=== PATIENT | female | born 1980 | race Caucasian/White ===

== ENCOUNTER → 2024-05-14 | Outpatient (CLI) | payer BC, SELFPAY ==
[2024-05-14 17:27] LABS: Absolute Lymphocyte Count 3.02 X10^3/uL (0.83-4.51); Absolute Neutrophil Count 4.4 X10^3/uL (2.0-7.7); Basophil# 0.06 X10^3/uL; Basophil% 0.7 % (0-1); Eosinophils% 2.4 % (0-5); Hematocrit 33.8 % (37-47); Hemoglobin 10.3 g/dL (12.0-15.0); Lymphocyte # 3.02 X10^3/ul (0.83-4.51); Lymphocyte % 36.1 % (19-41); Mean Corp Hgb Conc 30.5 g/dL (32-36); Mean Corpuscular Hgb 24.3 pg (27.0-32.0); Mean Corpuscular Volume 79.9 fL (81-99); Mean Platelet Vol. 10.5 fl (6.2-12.0); Monocyte# 0.64 X10^3/uL; Monocyte% 7.7 % (0-10); NRBC Flagged by Analyzer 0 % (0-5); Neutrophil # 4.42 X10^3/uL (2.7-7.7); Neutrophil % 52.9 % (47-70); Platelet Count 456 K/mm3 (150-450); RBC Distribution Width CV 16.5 % (11.6-14.6); RBC Distribution Width SD 47.2 fl (35.1-43.9); Red Blood Count 4.23 M/mm3 (4.2-5.4); White Blood Count 8.4 K/mm3 (4.4-11.0)
[2024-05-14 18:07] LABS: Vitamin B12 497 pg/mL (211-911); Vitamin D,25 Hydroxy 19.6 ng/mL
[2024-05-14 18:21] LABS: ALB/GLOB Ratio 0.8 RATIO (0.9-2.4); AST(SGOT) 12 U/L (15-37); Alanine Aminotransfer ALT/SGPT 22 U/L (13-56); Albumin, Serum 3.7 g/dL (3.2-5.0); Alkaline Phosphatase 53 U/L (45-117); Anion Gap 7 (5-15); BUN 7 mg/dL (7-18); BUN/Creat Ratio 11.7 RATIO (10-20); Calcium,Total 9.2 mg/dL (8.5-10.1); Chloride 106 mmol/L (98-107); Cholesterol 208 mg/dL (200); EST Glomerular Filtration Rate 117 mL/min (>60); Est Glom Filt Rate - Afr Amer 141 mL/min (>60); Ferritin 7 ng/mL (8-252); Globulin 4.5 g/dL (2.2-4.2); Glucose 91 mg/dL (74-106); High Density Lipoprotein 70 mg/dL; Iron 29 ug/dL (50-170); Potassium 3.7 mmol/L (3.5-5.1); Protein, Total 8.2 g/dL (6.4-8.2); Sodium Level 138 mmol/L (136-145); T4 Free Direct 1.19 ng/dL (0.76-1.46); Triglycerides 77 mg/dL; Very Low Density Lipoprotein 15 mg/dL (5-40)
== END | disposition home or self-care (01) ==
PROVIDERS: PCP Family Medicine; Referring Provider Nurse Practitioner Family; Visit Provider Nurse Practitioner Family
DX: Z00.01 Encounter for general adult medical examination with abnormal findings (principal); R53.83 Other fatigue
CPT/HCPCS: 36415; 80053; 80061; 82306; 82607; 82728; 83540; 84439; 84443; 85025

== ENCOUNTER → 2024-06-20 | Outpatient (CLI) | payer BC, SELFPAY ==
[2024-06-27 10:58] LABS: Age Gdln ACOG Testing 30-65 (.); HPV APTIMA, High Risk Negative (Negative)
[2024-06-27 14:07] LABS: HPV Reflexed? NOT INDICATED
== END | disposition home or self-care (01) ==
LOC: LABSPEC 12:51
PROVIDERS: PCP Family Medicine; Referring Provider Nurse Practitioner Family; Visit Provider Nurse Practitioner Family
DX: Z12.4 Encounter for screening for malignant neoplasm of cervix (principal)
CPT/HCPCS: 88175; G0145

== ENCOUNTER → 2024-07-03 | Outpatient (CLI) | payer BC, SELFPAY ==
--- NOTE | 2024-07-03 13:04 | US_ITS ---
INDICATION: RLQ pain EXAMINATION: Ultrasound US Pelvis Non-OB Complete TECHNIQUE: Transabdominal and transvaginal pelvic ultrasound was performed. Grayscale, spectral waveform, and color flow Doppler evaluation of the adnexa. COMPARISON: No relevant prior comparison study available FINDINGS: UTERUS: Anteverted. The uterus measures 17.8 x 17.6 x 5.4 cm. Multiple masses are seen in the uterus consistent with uterine fibroids. There is a large mass on the right side of the uterus measuring about 6.6 cm. There is another pedunculated mass near the fundus of the uterus measuring about 6.6 cm. Another large mass is seen in the body of the uterus close to the endometrial canal measuring about about 11.8 x 11.3 x 8.4 cm. The endometrial stripe is not visualized. RIGHT OVARY: 3.2 x 2.5 x 2.1 cm. Non-enlarged, normal echogenicity. There is normal arterial inflow and venous outflow present in the right ovary. LEFT OVARY: 4.6 x 2.9 x 2.4 cm. There is a 2.5 cm cyst in the left ovary. There is normal arterial inflow and venous outflow present in the left ovary. FREE FLUID: None. US/Pelvic (Non ) IMPRESSION: 1. Enlarged uterus with multiple masses consistent with uterine fibroids. 2. Large mass in the body of the uterus may be extending or arising from the endometrial canal. 3. Small left ovarian cyst. Electronically Signed: Ankush Hernandez MD at 16:02 EDT ,
== END | disposition home or self-care (01) ==
LOC: US 12:54
PROVIDERS: PCP Nurse Practitioner Family; Referring Provider Nurse Practitioner Family; Visit Provider Nurse Practitioner Family
DX: R10.31 Right lower quadrant pain (principal)
CPT/HCPCS: 76856

== ENCOUNTER → 2024-10-03 | Outpatient (CLI) | payer BC, SELFPAY ==
--- NOTE | 2024-10-03 | IMM_PTH ---
PATIENT: BONY LIVINGSTON LOC: [facility] U#:[id number] AGE/SX: 43/F ROOM: RE10/03/[address]: Dr. Monica Davila DO : 1980 BED: DIS: 10/03/2024 SPEC #: [id number] RECD: 10/07/24 11:23 STATUS: JAYNE REQ #: [id number] ANA: 10/03/24 00:[address]: Monica Davila DEPT: IMMUNOHISTOCHEMISTRY RECD BY: Guilherme Pablo ENTERED: 10/07/24 11:24 SP TYPE: IMMUNO OTHR DR: Paola Hope, CORPORATE DIRECTOR-C Tissues: Endometrium, NOS Procedures: p16 (initial) KI-67 (add) PHYSICIAN & INSTITUTION [place] [id number] SPECIMEN INFORMATION: Tissue Source: Endometrial biopsy Clinical Info: Menorrhagia Specimen Number: [id number] CPT code: 45951,83937 METHODOLOGY: Deparaffinized sections of prefer/formalin-fixed tissue or PAP/DQ stained slides are incubated with monoclonal/polyclonal antibodies/oligonucleotide probes. Localization is made via biotin free immunoperoxidase method. Appropriate controls are performed and reacted as expected. Results on target cell population are indicated in the following table: RESULTS: ANTIBODY / CLONE RESULT P16 (E6H4) positive, non-specific glandular staining Ki-67 (30-9) positive, in endometrial stromal fragments These tests were developed and their performance characteristics determined by [facility]. They may not have been cleared or approved by the U.S. Food and Drug Administration. The FDA has determined that such clearance or approval is not necessary. The above immunohistochemical/dualISH markers are ordered and reviewed by the Pathologist. INTERPRETATION: Endometrial biopsy: Benign endocervical tissue and rare scant endometrial tissue. CARLOS MANUEL. 10/07/2024
--- NOTE | 2024-10-03 15:30 | EMB_PTH ---
PATIENT: BONY LIVINGSTON LOC: [facility] U#:[id number] AGE/SX: 43/F ROOM: RE10/03/[address]: Dr. Monica Davila DO : 1980 BED: DIS: 10/03/2024 SPEC #: [id number] RECD: 10/03/24 17:08 STATUS: JAYNE BHARGAV #: [id number] ANA: 10/03/24 15:[address]: Monica Davila DEPT: SURGICAL PATHOLOGY RECD BY: Christi Grewal ENTERED: 10/06/24 08:21 SP TYPE: ENDOM BX/C [place] DR: Paola Hope, GEOLOGICAL TECHNICIAN-C Tissues: Endometrium, NOS Procedures: Surgery Specimen Level IV HEADER OPERATION: Endometrial biopsy PRE-OP DIAGNOSIS: Menorrhagia TISSUE SUBMITTED: Endometrial lining MICROSCOPIC DIAGNOSIS Endometrial biopsy: Blood admixed with portions of endocervix showing mild chronic inflammation and focal squamous metaplasia. Rare scant portions of broken-down endometrium, benign. See comment. 10/07/2024 COMMENT There is minimal endometrial tissue for evaluation therefore, should endometrial pathology continue to be suspected, a curetting specimen may provide more material for evaluation if clinically indicated. Immunohistochemistry ([id number]) supports the above diagnosis. Case has been reviewed in consultation with Dr. Duran who concurs with the above diagnosis. IDC:CHICO MICROSCOPIC DESCRIPTION Slides are reviewed. GROSS DESCRIPTION Received in fixative is one container labeled with the patient's name and designated Endometrial biopsy. The specimen consists of multiple irregular fragments of hemorrhagic mucoid tissue that in aggregate measure 2.5 x 1 x 0.2 cm. The specimen is totally submitted in one cassette. 10/06/2024 TC:3 CPT:69092
== END | disposition home or self-care (01) ==
LOC: LABSPEC 16:28
PROVIDERS: PCP Nurse Practitioner Family; Referring Provider Obstetrics & Gynecology; Visit Provider Obstetrics & Gynecology
DX: N92.0 Excessive and frequent menstruation with regular cycle (principal)
CPT/HCPCS: 88305; 88341; 88342

== ENCOUNTER → 2024-11-10 | Outpatient (CLI) | payer BC, SELFPAY ==
[2024-11-10 16:07] LABS: Hematocrit 37.8 % (37-47); Hemoglobin 12.4 g/dL (12.0-15.0); Mean Corp Hgb Conc 32.8 g/dL (32-36); Mean Corpuscular Hgb 29.5 pg (27.0-32.0); Mean Platelet Vol. 11.1 fl (6.2-12.0); Platelet Count 387 K/mm3 (150-450); RBC Distribution Width CV 16.4 % (11.6-14.6); RBC Distribution Width SD 54.4 fl (35.1-43.9); White Blood Count 9.7 K/mm3 (4.4-11.0)
== END | disposition home or self-care (01) ==
LOC: BWCLAB 14:31
PROVIDERS: PCP Nurse Practitioner Family; Visit Provider Obstetrics & Gynecology
DX: Z01.818 Encounter for other preprocedural examination (principal)
CPT/HCPCS: 36415; 83735; 85027; 86850; 86900; 86901

== ENCOUNTER 2024-11-11 09:37 | Inpatient (IN) | payer BC, SELFPAY ==
[2024-11-11] VITALS (19 sets, daily range): BP systolic 81–112; BP diastolic 49–72; PULSE 60–95; RESP 12–18; TEMP 36.2–37.3; O2SAT 96–100; BMI 28.8
[2024-11-11] MEDS: Celecoxib 200 MG Capsule 400 MG PO (06:10)
[2024-11-11] MEDS: Phenazopyridine 95 MG Tablet 190 MG PO (06:10)
[2024-11-11] MEDS: Acetaminophen 500 MG Tablet 1000 MG PO ×4 (06:10→23:13)
[2024-11-11] MEDS: Scopolamine 1mg/72hr Patch 1 PATCH TD (06:11)
[2024-11-11] MEDS: Gabapentin 600 MG Tablet PO (06:11)
[2024-11-11] MEDS: Lactated Ringers 1,000 ML 40 ML IV (06:21)
[2024-11-11] MEDS: Magnesium 1 GM over 15 mins IV (06:22)
[2024-11-11 06:29] LABS: Internal QC Validated? YES +Cl - CLEAR BKGD; Pregnancy, Urine Negative Negative
[2024-11-11 06:53] LABS: Bedside Glucose 100 mg/dL (74-106)
--- NOTE | 2024-11-11 07:13 | PRE.ANES_ITS ---
ASA Classification* ASA Classification ASA Classification: 2 Assessment & Plan Anesthesia* Anesthesia Assessment Anesthesia Assessment: Discussed sedation and/or anesthesia options, risks, benefits, and alternatives with patient/parents/legal guardian/POA. Questions invited. The patient/parents/legal guardian/POA seems to understand and agrees to proceed with anesthesia plan. Reviewed the physical assessment, medical history, allergy history and patient home medications list prior to surgery/procedure/anesthetic and documented any changes. Performed airway and anesthesia risk assessments. Anesthesia Type Anesthesia Type: General History Source History Obtained from:: Patient and Chart Anesthesia Focused Assessment* Temperature: 99.2 F Pulse Rate: 87 Blood Pressure: 112/72 Respiratory Rate: 18 Pulse Ox: 97 Oxygen Delivery Method: Room Air Airway Assessment Mouth opens: >3 cm Mallampati Score: II Teeth Condition: Intact Neck Range of motion (ROM): Full ROM Focused Labs Anesthesia Preop lab: CBC WBC 9.7 K/mm3 (4.4-11.0) 11/10/24 14:32 11/10/24 RBC 4.20 M/mm3 (4.2-5.4) 11/10/24 14:32 11/10/24 Hgb 12.4 g/dL (12.0-15.0) 11/10/24 14:32 11/10/24 Hct 37.8 % (37-47) 11/10/24 14:32 11/10/24 Plt Count 387 K/mm3 (150-450) 11/10/24 14:32 11/10/24 CHEMISTRY Potassium 3.7 mmol/L (3.5-5.1) 05/14/24 16:40 05/14/24 Sodium 138 mmol/L (136-145) 05/14/24 16:40 05/14/24 Magnesium 2.0 mg/dL (1.5-2.2) 11/10/24 14:32 11/10/24 BUN 7 mg/dL (7-18) 05/14/24 16:40 05/14/24 Creatinine 0.60 mg/dL (0.55-1.02) 05/14/24 16:40 05/14/24 Glucose 91 mg/dL (74-106) 05/14/24 16:40 05/14/24 POC Glucose 100 mg/dL (74-106) 11/11/24 05:57 11/11/24 TSH 1.540 uIU/mL (0.358-3.740) 05/14/24 16:40 05/04 09/26 COAG Urine Test Negative Negative 11/11/24 06:08 11/11/24 Pre-Assessment Diagnosis/Proposed Procedure Planned Operative Procedure(s): TOTAL ABDOMINAL HYSTERECTOMY, BILATERAL SALPINGECTOMY Anesthesia History Anesthesia History - shingle trimmer: Anesthesia History - shingle trimmer Hx Hospitalization No 10/28/24 08:20 Any Problems With Anesthesia No 10/28/24 08:20 Cholinesterase deficiency No 10/28/24 08:20 You/Your Family Experience No 10/28/24 08:20 fever (hyperthermia) with Relationship Recent Exposure to Contagious No 11/11/24 06:00 Disease Does patient have nerve No 10/28/24 08:20 stimulator Patient instructed to have device shut off --Does patient have Pacemaker No 11/11/24 06:02 or ICD? When Was Last Pacemaker Check QUESTION #4 FULL TEXT: You/Your Family Experience fever (hyperthermia) with Anesthesia Last Oral Intake Last Oral intake: Last Oral Intake NPO since 04:50 11/11/24 06:02 Meds taken in AM with sips of No 11/11/24 06:02 water? Meds patient instructed to take am of surgery PONV PONV - shingle trimmer: PONV - shingle trimmer Female Yes 10/28/24 08:20 HX of Motion Sickness No 10/28/24 08:20 HX of N/V After Surgery No 10/28/24 08:20 Non-Smoker Yes 10/28/24 08:20 Duration of Surgery greater Yes 10/28/24 08:20 than 60 minutes Number of Risk Factors 3 10/28/24 08:20 PONV Score Moderate Risk 10/28/24 08:20 Height & Weight Height & Weight: Anesthesia: Height & Weight Height 5 ft 4 in 11/11/24 06:02 Weight: 76.204 kg 11/11/24 06:02 Body Mass Index (BMI) 28.8 11/11/24 06:02 Respiratory Assessment Respiratory Assessment - shingle trimmer: Respiratory Tract Infection Hx - shingle trimmer Hx Respiratory Tract Infection No 10/28/24 08:20 STOP Sleep Apnea STOP Sleep Apnea - shingle trimmer: STOP Sleep Apnea - shingle trimmer Hx Hypertension No 10/28/24 08:20 Hx Sleep Apnea No 10/28/24 08:20 CPAP BIPAP Do you snore loudly (louder No 10/28/24 08:20 than talking or can be heard Do you often feel tired/ No 10/28/24 08:20 fatigued/ sleepy during daytime? Has anyone observed you stop No 10/28/24 08:20 breathing during sleep? STOP Results Negative 10/28/24 08:20 QUESTION #5 FULL TEXT : Do you snore loudly (louder than talking or can be heard through closed doors)? 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 Specify any problems Hx of Preganancy in last 3 No 10/28/24 08:20 Months Nurse Filling Out Transfusion [email or web address] 10/28/24 08:20 & Questions: Date: 10/28/24 10/28/24 08:20 Time: 08:10/28/24 08:20 Patient unable to answer at this time (ie. confused, unrespo /Reproduction History /Reproductive History - shingle trimmer: /Reproductive Hx- shingle trimmer Hx Now No 10/28/24 08:20 Gestational Age (in weeks): EDC: Hx Hx Para Hx Section SAB No 10/31/24 13:21 Active Medications Active Medications: Current Medications Generic Name Dose Route Start Last Admin Trade Name Freq PRN Reason Stop Dose Admin Acetaminophen 1,000 mg 11/11/24 07:30 11/11/24 06:10 Acetaminophen 500 Mg Tablet PO 11/11/24 07:31 1,000 mg PREOP ONE Administration Celecoxib 400 mg 11/11/24 07:30 11/11/24 06:10 Celecoxib 200 Mg Capsule PO 11/11/24 07:31 400 mg X1 ONE Administration Gabapentin 600 mg 11/11/24 07:30 11/11/24 06:11 Gabapentin 600 Mg Tablet PO 11/11/24 07:31 600 mg PREOP ONE Administration Lactated Ringer's 1,000 mls @ 40 mls/hr 11/11/24 07:30 11/11/24 06:21 IV 40 mls/hr .Q25H ERICA Administration Lactated Ringer's 1,000 mls @ 70 mls/hr 11/11/24 07:30 IV .[id number] ERICA Cefazolin Sodium 2 gm/ N/A 20 mls @ 400 mls/hr 11/11/24 07:30 IV 11/11/24 07:32 PREOP ONE Insulin Human Lispro 0 unit 11/11/24 07:30 Insulin Lispro 100 Unit/Ml Insuln.Pen SC 11/11/24 18:00 Q4H PRN PRN BG >/= 180, SEE PROTOCOL Protocol Ondansetron HCl 4 mg 11/11/24 07:30 Ondansetron 4 Mg/2 Ml Vial IV 11/11/24 07:31 X1 ONE Phenazopyridine HCl 190 mg 11/11/24 07:30 11/11/24 06:10 Phenazopyridine 95 Mg Tablet PO 11/11/24 07:31 190 mg X1 ONE Administration Scopolamine HBr 1 patch 11/11/24 07:30 11/11/24 06:11 Scopolamine 1mg/72hr Patch TD 11/11/24 07:31 1 patch X1 ONE Administration [facility] Medical History Wears glasses Alcohol use Scoliosis Anemia Home Medications ?Medication ?Instructions ?Recorded ?Last Taken ?Type ferrous sulfate 325 mg (65 mg 325 mg PO QDAY DAILY 11/09/24 History iron) tablet (iron) multivitamin 1 tab PO QDAY DAILY 08/18/24 11/09/24 History cholecalciferol (vitamin D3) 25 25 mcg PO DAILY DAILY 10/28/24 11/09/24 History mcg (1,000 unit) capsule milk thistle seed extract 150 1 cap PO DAILY DAILY 10/28/24 History mg-artichoke leaf extract 300 mg capsule (Artichoke Premium Extract) Allergy/AdvReac Type Severity Reaction Status Date / Time No Known Allergies Allergy Verified 11/11/24 05:58 Surgical History History of wisdom tooth extraction History of delivery Social History Smoking Status: Never smoker Review of Systems (Anesthesia) ROS Narrative System reviewed and no additional complaints, except as documented.
--- NOTE | 2024-11-11 07:19 | PCM.HP.BLA ---
History and Physical Date of Admission: 11/11/24 Intake Vital Signs 10/03/2514:15 10/31/2512:19 10/31/2512:21 Height 5 ft 4 in 5 ft 4 in 5 ft 4 in Weight: 167 lb BMI 28.6 BP 106/72 Intake Visit Reasons: [facility] Hub Borer Required: No Is patient in pain?: No Allergies No Known Allergies Allergy (Verified 10/31/24 13:19) Medications ?Medication ?Instructions ?Recorded ?Confirmed ?Type ferrous sulfate 325 mg (65 mg 325 mg PO QDAY DAILY 08/18/24 10/31/24 History iron) tablet (iron) multivitamin 1 tab PO QDAY DAILY 08/18/24 10/31/24 History cholecalciferol (vitamin D3) 25 25 mcg PO DAILY DAILY 10/28/24 10/31/24 History mcg (1,000 unit) capsule milk thistle seed extract 150 1 cap PO DAILY DAILY 10/28/24 10/31/24 History mg-artichoke leaf extract 300 mg capsule (Artichoke Premium Extract) Post menopausal: No Patient : No : No PFSH Medical History Wears glasses Alcohol use Scoliosis Anemia Surgical History History of wisdom tooth extraction History of delivery Social History Smoking Status: Never smoker [facility] Details: BONY LIVINGSTON is a 43 year old (2 sections) who presents for preoperative examination. She is scheduled for a total abdominal hysterectomy. EMB was benign. Ultrasound on 07/03/24 showed the following: INDICATION: RLQ pain EXAMINATION: Ultrasound US Pelvis Non-OB Complete TECHNIQUE: Transabdominal and transvaginal pelvic ultrasound was performed. Grayscale, spectral waveform, and color flow Doppler evaluation of the adnexa. COMPARISON: No relevant prior comparison study available FINDINGS: UTERUS: Anteverted. The uterus measures 17.8 x 17.6 x 5.4 cm. Multiple masses are seen in the uterus consistent with uterine fibroids. There is a large mass on the right side of the uterus measuring about 6.6 cm. There is another pedunculated mass near the fundus of the uterus measuring about 6.6 cm. Another large mass is seen in the body of the uterus close to the endometrial canal measuring about about 11.8 x 11.3 x 8.4 cm. The endometrial stripe is not visualized. RIGHT OVARY: 3.2 x 2.5 x 2.1 cm. Non-enlarged, normal echogenicity. There is normal arterial inflow and venous outflow present in the right ovary. LEFT OVARY: 4.6 x 2.9 x 2.4 cm. There is a 2.5 cm cyst in the left ovary. There is normal arterial inflow and venous outflow present in the left ovary. FREE FLUID: None. US/Pelvic (Non ) IMPRESSION: 1. Enlarged uterus with multiple masses consistent with uterine fibroids. 2. Large mass in the body of the uterus may be extending or arising from the endometrial canal. 3. Small left ovarian cyst. sound on 07/03/24 showed the following She states that her mom also had a fibroid uterus. She denies family history of uterine cancer. ROS Const ROS Unobtainable: All systems reviewed & are unremarkable except as noted in H Resp Resp: Reports system reviewed and no additional complaints, except as documented; Denies cough GI GI: Reports as per HPI Psych Psych: Reports system reviewed and no additional complaints, except as documented Exam Const General: cooperative, healthy appearing, comfortable and no acute distress Resp Effort & Inspection: normal respiratory effort Skin General: no rashes or lesions noted Psych Appearance: grossly normal Speech and Movement: speech and movement normal Coding Level of Care Code Off vis,est,level 4 Diagnoses Menorrhagia N92.0 Fibroid uterus D25.9 Anemia D64.9 Assessment and Plan Assessment and Plan (1) Menorrhagia: Status: Acute (2) Fibroid uterus: Status: Acute (3) Anemia: Status: Acute Comment: ON FE Plan After discussing the patient's diagnosis and treatment plan options, patient wishes to proceed with surgical management. I have discussed with the patient the risks, benefits, and alternatives of the procedure which include but are not limited to risks of anesthesia, bleeding, infection, possible damage to bowel, bladder, or surrounding vasculature which could lead to additional surgery to evaluate any complications. Patient agrees to procedure and wishes to proceed. ACOG/uptodate references given for additional information regarding procedure. plan to check hg the weekend prior to surgery plan for total abdominal hysterectomy, bs
[2024-11-11] MEDS: Cefazolin 2 GM in Syringe IV (07:30)
--- NOTE | 2024-11-11 07:30 | UT_PTH ---
PATIENT: BONY LIVINGSTON LOC: [facility] U#:[id number] AGE/SX: 43/F ROOM: MS311 RE11/11/[address]: Dr. Monica Davila DO : 1980 BED: 1 DIS: 11/12/2024 SPEC #: [id number] RECD: 11/11/24 09:48 STATUS: JAYNE BHARGAV #: [id number] ANA: 11/11/24 07:[address]: Monica Davila DEPT: SURGICAL PATHOLOGY RECD BY: Guilherme Pablo ENTERED: 11/11/24 09:49 SP TYPE: UTERUS OTHR DR: Paola Hope, TELEGRAPH REPEATER TECHNICIAN-C Tissues: Uterus, NOS Procedures: Surgery Specimen Level V HEADER OPERATION: ERAS, hysterectomy, BALJINDER, bilateral salpingectomy PRE-OP DIAGNOSIS: Menorrhagia TISSUE SUBMITTED: Uterus and bilateral fallopian tubes MICROSCOPIC DIAGNOSIS UTERUS WITH BILATERAL FALLOPIAN TUBES, HYSTERECTOMY WITH BILATERAL SALPINGECTOMY: Cervix: SOFIA I, Nabothian cysts, tunnel clusterEndometrium: SecretoryMyometrium: LeiomyomataFallopian tubes: 2 completely transected fallopian tubes with paratubal cysts COMMENT German Redding M.D., 11/15/24 MICROSCOPIC DESCRIPTION Slides are reviewed. GROSS DESCRIPTION The specimen is received fresh labeled with the patient's name, accession number and uterus and bilateral fallopian tubes. It consists of a uterus with attached cervix and 2 detached undesignated fallopian tubes. The uterus weighs 2080 gm and measures 20 x 19 x 11 cm. The ectocervical mucosa is white, smooth and shiny, and the os is small and round. The uterus is opened, revealing the endocervical canal to measure 4 cm in length and to be hampton and trabecular. The endometrial canal is 17.5 cm long by 6 cm from cornu to cornu. It has a maximum thickness of 7 mm. It is hampton and velvety. The myometrium is distorted by multiple whorled white nodules which range in size from 0.4 cm to 13 x 9 x 9 cm. The nodules are located intramurally, subserosally and submucosally. The largest nodule has gelatinous, degenerated-appearing areas. The other nodules have firm rubbery whorled white surfaces. The first detached undesignated fallopian tube measures 7 x 1.3 x 1 cm. It has a fimbriated end and a purple congested-appearing serosal surface. The second fallopian tube also has a fimbriated end and it measures 7 x 1.3 x 0.8 cm. It also has a purple, congested-appearing serosal surface, with no lesions identified. RS 13. 11/12/24 Cassette summary: A1-anterior cervix A2-posterior cervix A3-anterior endometrium A4-posterior endometrium A1-H11-qfqsupu nodule A57-zgafzi-skpnfek nodule R54-agxjt fallopian tube L38-ncrfzf fallopian tube CPT: 25208, TC:1
--- NOTE | 2024-11-11 09:31 | PCM.OPRPT ---
Problems Associated Problem List Diagnoses (1) Menorrhagia: (2) Fibroid uterus: (3) Anemia: Multi Select Codes Urinary/Genital Urinary/Genital CPT Codes: 74752 [facility] Operative Report (Standard) Operative Information Date of Procedure: 11/11/24 Pre-Operative Diagnosis: enlarged fibroid uterus, menorrhagia Post-Operative Diagnosis: enlarged fibroid uterus, menorrhagia Surgery/Procedure Performed: total abdominal hysterectomy, bilateral salpingectomy certified ethical hacker: Yes Collet Gluer: Keara Alvarez Tasks completed by development assistant: Opening, Closing, Hemostasis: Clamp, Hemostasis: Tie, Hemostasis: Electrocautery and Retracting Additional dental hygiene administrative assistant?: No Type of Anesthesia: General RN Documented Start/Stop Times: Operation Date: 11/11/24 07:30 Case Time Into Pre-Op 11/11/24 05:35 Out of Pre-Op 11/11/24 07:25 Anesthesia Start 11/11/24 07:29 Into Room 11/11/24 07:29 Procedure Start 11/11/24 07:58 Procedure End 11/11/24 09:26 Procedure Start Time: 07:58 Procedure Stop Time: 09:26 Select all DRAINS/GRAFTS/IMPLANTS that apply: None Estimated Blood Loss: 100cc Specimen collected: Yes Description of specimen(s) removed: uterus and tubes Description of surgery: The patient was taken to the operating room and placed under general anesthesia in the dorsal supine position. She was prepped and draped in the normal sterile fashion. Trivedi catheter was placed in the bladder SCDs were on and preoperative antibiotics were given. A Pfannenstiel skin incision was made with the scalpel and carried through the underlying layer of the fascia with the scalpel, fascia was nicked in the midline, incision extended laterally. Rectus bellies were dissected off superiorly and inferiorly sharply and bluntly and peritoneum entered digitally, incision stretched laterally and the retractor was placed after the bowel was packed away. The uterus was identified and noted to be significantly enlarged approximately 20 cm with multiple large fibroids. The ovaries were noted to be within normal limits. The fallopian tubes were elavated bilaterally and the mesosapinx clamped cut and burned with a hand held ligasure device. The round ligaments were transected bilaterally and using the lagasure. The broad ligament was opened up and the utero-ovarian ligament vessels were double clamped cut and suture ligated with 0 Vicryl. The bladder flap was created taking down the vesicouterine peritoneum and the uterine vessels were skeletonized and clamped cut and suture ligated with 0 Monocryl bilaterally. The cardinal ligament were then clamped cut and suture ligated bilaterally with 0 Vicryll followed by progressive bites of the parametrium down to the level of the cervix. Good attention was paid to keep the bladder inferior to the clamps and dissected off of the cervix and lower uterine corpus. The clamps were then placed underneath the cervix bilaterally the uterus amputated off of the vaginal stump and the vaginal cuff was suture ligated with 0 vicryl [id number] sutures ?3. Excellent hemostasis was noted with some raw appearance which was covered with hemoblast after irrigation. Bilateral fallopian tubes were then removed excellent hemostasis was noted all instruments removed from the abdomen and the peritoneum was closed with 3-0 Monocryl fascia closed with 0 stratafix. The subcutaneous tissue reapproximated with 3-0 vicryl and the skin closed with 4-0 Monocryl. Patient was awoken and taken recovery in stable condition. Surgical Findings: uterus weighing 2134 grams (4 lbs 7 oz) Complications Complications: No Admit VTE Documentation VTE Present on Admission: No VTE Mechan Device Prophylaxis: SCD's VTE Pharm Prophylaxis ordered?: Yes
[2024-11-11] MEDS: Ondansetron 4 MG/2 ML Vial IV (09:50)
[2024-11-11] MEDS: Lactated Ringers @ 70 MLS/HR 70 ML IV (09:55)
[2024-11-11] MEDS: Ketorolac 30 MG/ML Syringe IV ×3 (12:02→23:13)
[2024-11-11] MEDS: 0.9% Saline Lock 10 ML Syringe IV ×2 (12:02→17:43)
--- NOTE | 2024-11-11 17:16 | PCM.POST.ANE ---
Anesthesia: Postop Eval I Current Vital Signs Temperature: 97.9 F Pulse Rate: 80 Blood Pressure: 99/63 Respiratory Rate: 16 Pulse Ox: 98 Oxygen Delivery Method: Nasal Cannula Oxygen Flow Rate (L/min): 4 Assessment Airway patent: Yes Spontaneous unlabored respirations: Yes Mental status: Awake nausea: No Vomiting: No Anesthesia Complication: No Fluid Hydration Crystalloid volume administer (ml): 1,000 (See intraop record. - may not be accurate) Total IV fluid infused: 1,000 Progress Note Anesthesia document: Postop Eval 1 completed: Yes
--- NOTE | 2024-11-11 17:18 | PCM.POSTANE2 ---
Anesthesia Postop Eval I Sum Postop Eval Completion status Anesthesia document: Postop Eval 1 completed: Yes Anesthesia Postop Eval I Summary Anesthesia Postop Eval I Summary: Anesthesia Postop Eval I: Assessment Summary Airway patent Yes 11/11/24 17:18 Spontaneous unlabored Yes 11/11/24 17:18 respirations Mental status Awake 11/11/24 17:18 nausea No 11/11/24 17:18 Vomiting No 11/11/24 17:18 Anesthesia Postop Eval I: Fluid Summary Crystalloid volume administer 1,000 - See 11/11/24 17:18 (ml) intraop record. - may not be accurate Colloids volume administered ( ml) Blood Product volume administered (ml) Total IV fluid infused 1,000 11/11/24 17:18 Anesthesia Postop Eval I: Summary Notes Anesthesia Complication No 11/11/24 17:18 Anesthesia Complication Comment: Post-operative progress note Anesthesia: Postop Eval II Evaluation Mental status: Awake Pain Level: 1 nausea: No Vomiting: No Complications Anesthesia Complication: No
[2024-11-11] MEDS: Docusate Sodium 100 MG Capsule PO (23:12)
[2024-11-12 05:00] VITALS: BP 106/69; PULSE 66; RESP 15; TEMP 36.8; O2SAT 99
[2024-11-12] MEDS: Acetaminophen 500 MG Tablet 1000 MG PO ×2 (05:30→12:03)
[2024-11-12] MEDS: Ketorolac 30 MG/ML Syringe IV ×2 (05:30→12:04)
[2024-11-12 07:18] LABS: Hematocrit 33.4 % (37-47); Hemoglobin 10.8 g/dL (12.0-15.0); Mean Corp Hgb Conc 32.3 g/dL (32-36); Mean Corpuscular Hgb 29.6 pg (27.0-32.0); Mean Corpuscular Volume 91.5 fL (81-99); Mean Platelet Vol. 10.6 fl (6.2-12.0); Platelet Count 316 K/mm3 (150-450); RBC Distribution Width CV 16.8 % (11.6-14.6); RBC Distribution Width SD 56.7 fl (35.1-43.9); Red Blood Count 3.65 M/mm3 (4.2-5.4); White Blood Count 14.1 K/mm3 (4.4-11.0)
[2024-11-12 08:19] VITALS: BP 105/71; PULSE 78; RESP 14; TEMP 36.5; O2SAT 96
[2024-11-12 08:25] VITALS: PULSE 78; RESP 14; O2SAT 96
[2024-11-12] MEDS: Docusate Sodium 100 MG Capsule PO (09:57)
--- NOTE | 2024-11-12 10:25 | CASEMGMT ---
JACK DYER Assessment: Face to Face with pt for initial transition planning/care coordination assessment. JACK DYER introduced self and role at [facility], pt voices understanding and consents to assessment. Pt is A&O x4 and answers all questions appropriately at this time. Pt sitting up in bed with , father and grandmother at bedside. Pt agreeable to assessment with family present. Care providers, pharmacy, and demographics verified/updated. Admitting Dx: divine GALE Strata Score: 1 PCP:Jayy Specialists:[facility]um[facility] [employer] [facility] [facility] Insurance: [employer] Pres[employer] Benefit: yes LNOK: Gato Landis, Living Arrangements: Pt lives with and two children in a two story home with 4 steps to enter. Pt reports she is I in ADL/IADLs. Pt denies concerns at home. Transportation: Pt drives self and denies concerns with transportation. DME:Denies HHC/SNF: Denies hx of Pt states no concerns with going home at time of dc. Pt states no further concerns/needs. CM to follow. Advised pt to ask CM if any further questions/concerns/needs arise, voices understanding. Pt Goal: Home Plan: Home Bo[facility] SANTIAGO CM
[2024-11-12] MEDS: 0.9% Saline Lock 10 ML Syringe IV (12:04)
[2024-11-12 13:48] VITALS: BP 108/68; PULSE 76; RESP 16; TEMP 36.6; O2SAT 97
--- NOTE | 2024-11-12 16:21 | NURSING ---
All documentation by nursing program manager Katy Lackey reviewed by nursing home assistant administrator Monica WHIPPLE, RN.
== END 2024-11-12 14:46 | disposition home or self-care (01) | DRG 743 ==
LOC: MS3 13:24
PROVIDERS: Admitting Provider Obstetrics & Gynecology; PCP Nurse Practitioner Family; Referring Provider Obstetrics & Gynecology; Visit Provider Obstetrics & Gynecology
PROC: 0UT90ZZ Resection of Uterus, Open Approach (ICD-10-PCS; CPT 58150; principal; 2024-11-11 07:10)
DX: D25.9 Leiomyoma of uterus, unspecified (principal); D64.9 Anemia, unspecified; N92.0 Excessive and frequent menstruation with regular cycle; N88.8 Other specified noninflammatory disorders of cervix uteri; N87.0 Mild cervical dysplasia; N83.8 Other noninflammatory disorders of ovary, fallopian tube and broad ligament
CPT/HCPCS: 36415; 81025; 82962; 85027; 88307; 94668; A4216; J2405; J3475

== ENCOUNTER → 2025-05-11 | Outpatient (CLI) | payer BC, SELFPAY ==
--- NOTE | 2025-05-11 07:10 | BI_ITS ---
EXAM: SCRN MAMM (CAD)W/SANTY BILAT DATE: 05/11/2025 CLINICAL HISTORY: F, Age 44 y/o , SCREENING TECHNIQUE: Procedure Code: [id number] Modality: MG Procedure: SCRN MAMM (CAD)W/SANTY BILAT COMPARISON: None. FINDINGS: TISSUE DENSITY: The breasts are extremely dense, which lowers the sensitivity of mammography. Bilateral Breast Mammographic Findings: No significant masses, calcifications or other abnormalities are identified. BI/SCRN MAMM (CAD)W/SANTY BILAT IMPRESSION: Negative screening mammogram. OVERALL FINAL ASSESSMENT BI-RADS 1: NEGATIVE. RECOMMENDATION: Routine annual follow-up in 1 Year A letter with findings and recommendations will be mailed to the patient. Reading Location: [id number]
--- OUTSIDE RECORDS SUMMARY | 2025-05-11 07:22 | XMS RPT_ITS | CCD ---
Author Organization [facility] Care Team Providers Care Community Development Officer Name Role Phone Omar Giles Primary Care Provider Jayy COMPRESSOR OPERATOR ADJUSTER-C, Paola Primary Care Provider [phone] Jayy COMPRESSOR OPERATOR ADJUSTER-C, [place] Referring Provider [phone] Monica Davila DO Attending Provider Jabier Ogden Attending Provider Dr. Monica Davila DO Referring Provider Dr. Monica Davila DO Admit Provider [phone] Dr. Monica Davila DO Other Provider [phone] Jayy COMPRESSOR OPERATOR ADJUSTER-C, [place] Primary Care Provider [phone] Jayy COMPRESSOR OPERATOR ADJUSTER-C, [place] Referring Provider Dr. Monica Davila DO Attending Provider Dr. Monica Davila DO Referring Provider Dr. Dexter Redding MD Attending Provider Dr. Dexter Redding MD Referring Provider Lisa COMPRESSOR OPERATOR ADJUSTER-CMarta Attending Provider Kvng Hedrick Attending Provider Jayy, Paola Primary Care Unavailable Monica Davila Admitting Unavailkalyan e Monica Davila Referring Unavailabl e Monica Davila Attending Unavailabl e Jayy, Paola Attending Unavailable Jayy, Paola Primary Care Unavailable Jayy, Paola Referring Unavailable Sailors, Dexter Referring Unavailable WendyorsDexter Attending Unavailable Jayy, Paola Primary Care Unavailable Jayy, Paola Primary Care Unavailable Monica Davila Attending Unavailabl e Monica Davila Consulting Unavailabl e Margote Monica Pina Admitting Unavailabl e Vande Velde, Monica Referring Unavailabl e Jayy, Paola Primary Care Unavailable Jayy, Paola Referring Unavailable Marta Gonzalez NP Attending Unavailable Jayy, Paola Primary Care Unavailable Jayy, Paola Referring Unavailable Margote Monica Pina Attending Unavailabl e Jayy, Paola Referring Unavailable Jabier Ogden Attending Unavailable Jayy, Paola Primary Care Unavailable Jayy, Paola Referring Unavailable Jayy, Paola Primary Care Unavailable Herman Pina, Monica Attending Unavailabl e Jayy, Paola Primary Care Unavailable Herman Pina, Monica Attending Unavailabl e Jayy, Paola Referring Unavailable Jayy, Paola Primary Care Unavailable Jayy, Paola Referring Unavailable Monica Davila Attending Unavailabl e Jayy, Paola Primary Care Unavailable Jayy, Paola Referring Unavailable Kvng Hedrick Attending Unavailable Jayy, Paola Attending Unavailable Jayy, Paola Referring Unavailable Malys, Odette Primary Care Unavailable Jayy, Paola Attending Unavailable Malys, Odette Primary Care Unavailable Jayy, Paola Referring Unavailable Jayy, Paola Primary Care Unavailable Monica Davila Referring Unavailabl e Herman Pina, Monica Attending Unavailabl e Jayy, Paola Attending Unavailable Jayy, Paola Primary Care Unavailable Jayy, Paola Referring Unavailable Jayy, Paola Primary Care Unavailable Monica Davila Attending Unavailabl e Medications Current Medications Medication Drug Class(es) Dates Sig (Normalized) Sig (Original) cholecalciferol 0.025 mg oral capsule (4 sources) Vitamin D Start: 10-28-2024 take 1 capsule by mouth once daily Cholecalciferol (Vitamin D3) 25 mcg (1,000 unit) capsule Active 25 ug PO DAILY October 28, 2024 1:00am ferrous sulfate 325 mg oral tablet (4 sources) Start: 08-18-2024 take 1 tablet by mouth once daily Ferrous Sulfate (Iron) 325 mg (65 mg iron) tablet Active 325 mg PO daily August 18, 2024 1:00am Milk Thist Seed-Artichoke High Rolls (Artichoke Premium Extract) 150-300 mg capsule (4 sources) Start: 10-28-2024 Milk Thist Seed-Artichoke High Rolls (Artichoke Premium Extract) 150-300 mg capsule Active 1 NMA PO DAILY October 28, 2024 1:00am Multivitamin tablet (4 sources) Start: 08-18-2024 Multivitamin tablet Active 1 {tbl} PO daily August 18, 2024 1:00am Completed/Discontinued Medications Medication Drug Class(es) Dates Sig (Normalized) Sig (Original) azithromycin 250 mg oral tablet (4 sources) Macrolide Antimicrobial Start: 08-21-2024 End: 10-03-2024 take 2-5 tablets by mouth once daily Azithromycin 250 mg tablet Discontinued 0 PO .COMPLEX August 21, 2024 1:00am October 03, 2024 4:24pm take 500 mg today (day 1), then 250 mg for 4 days (days 2-5) PO B Kaxsewd-P-I-Zn tablet (4 sources) Start: 08-18-2024 End: 10-28-2024 B Jzrbdpm-F-G-Zn tablet Discontinued {tbl} PO August 18, 2024 1:00am October 28, 2024 9:17am benzonatate 100 mg oral capsule (4 sources) Non-narcotic Antitussive Start: 08-21-2024 End: 10-03-2024 take 2 capsules by mouth three times daily as needed for cough Benzonatate 100 mg capsule Discontinued 200 mg PO THREE TIMES A DAY as needed for cough August 21, 2024 1:00am October 03, 2024 4:24pm Kwugdgpl-Ne-Qxb-Fe- FA ORAL Tab (1 source) Start: 06-20-2007 take 1 tablet by mouth once daily Fwxdoixj-Vn-Eii-Fe -FA ORAL Tab TAKE ONE DAILY 0 06/20/2007 Active Comment on above: TAKE ONE DAILY Problems Active Problems Problem Classification Problem Date Documented Da te Episodic/Chronic Acute bronchitis (4 sources) Acute bronchitis; Translations: [Acute bronchitis, unspecified] 08-21-2024 Episodic Deficiency and other anemia (17 sources) Anemia; Translations: [Anemia, unspecified] Onset: 02-12-2009 02-12-2009 Episodic Comment on above: ON FE Genitourinary congenital anomalies (1 source) Bicornuate uterus; 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] Onset: 05-14-2009 05-14-2009 Chronic Immunizations and screening for infectious disease (4 sources) Contact with and (suspected) exposure to other viral communicable diseases; Translations: [Contact with or suspected exposure to other viral communicable disease] 08-21-2024 Episodic Menstrual disorders (17 sources) Menorrhagia; Translations: [Excessive and frequent menstruation with regular cycle] Onset: 12-10-2024 08-18-2024 Chronic Other aftercare (2 sources) Surgical follow-up; Translations: [Encounter for follow-up examination after completed treatment for conditions other than malignant neoplasm] 11-26-2024 Episodic Other and delivery including normal (1 source) Normal in primigravida; Translations: [Supervision of normal first ] Onset: 06-20-2007 06-20-2007 Other screening for suspected conditions (not mental disorders or infectious disease) (2 sources) Encounter for screening mammogram for malignant neoplasm of breast; Translations: [Encounter for screening for malignant neoplasm of cervix] Onset: 07-10-2024 Episodic Past or Other Problems Problem Classification Problem Date Documented Da te Episodic/Chronic Abdominal pain (1 source) Right lower quadrant pain; Translations: [Right lower quadrant pain] Onset: 07-22-2024 Episodic Administrative/social admission (5 sources) Patient encounter status; Translations: [Encounter for pre-employment examination] Onset: 02-03-2025 02-03-2025 Episodic Benign neoplasm of uterus (17 sources) Uterine leiomyoma; Translations: [Leiomyoma of uterus, unspecified] Onset: 10-03-2024 08-18-2024 Episodic Conditions associated with dizziness or vertigo (1 source) Dizziness and giddiness; Translations: [Dizziness and giddiness] Onset: 02-12-2009 02-12-2009 Episodic Deficiency and other anemia (1 source) Anemia, unspecified; Translations: [Anemia, unspecified] Onset: 10-03-2024 Episodic Headache; including migraine (1 source) Headache; Translations: [Headache(784.0)] Onset: 02-12-2009 02-12-2009 Episodic Neoplasms of unspecified nature or uncertain behavior (1 source) Neoplasm of uncertain behavior of skin; Translations: [Neoplasm of uncertain behavior of skin] Onset: 03-25-2009 03-25-2009 Episodic Other aftercare (1 source) Encounter for follow-up examination after completed treatment for conditions other than malignant neoplasm; Translations: [Encounter for follow-up examination after completed treatment for conditions other than malignant neoplasm] Onset: 11-26-2024 Episodic Other circulatory disease (1 source) Elevated blood-pressure reading without diagnosis of hypertension; Translations: [Elevated blood pressure reading without diagnosis of hypertension] Onset: 03-25-2009 03-25-2009 Episodic Results Test Name Value Interpretation Reference Range Facility Office Visit Reporton 2024 Office Visit Report [facility] [address] [place] [address] OFFICE VISIT Date of Service: 02/03/25 MR#: [id number] Acct: [id number] Patient: BONY LIVINGSTON Rep #: [id number] : 1980 Provider: NIGEL Medley Age/Sex: 44/F [place] [facility] Status: Signed Intake Vital Signs 12/22/24 15:18 Height 5 ft 4 in Intake Visit Reasons: PE NON DOT DRUG BAT / MENA BRUSH Chief Complaint: 6wk Postop Allergies No Known Allergies Allergy (Verified 12/22/24 15:17) Office Procedures [facility] Billing Sheet Testing Breath Alcohol in [facility]: Yes Pre-Employment Drug Screen: Yes Pre-Employment PE: Yes 02/10/25 0827 Date Kvng MANNING Cosigner Signature: Date (if applicable) CC: Normal [facility] Visit Reporton 0 02-03-2025 Urgent Care Visit Report [facility] [address], [address] [place] [address] OFFICE VISIT Date of Service: 02/03/25 MR#: [id number] Acct: [id number] Name: BONY LIVINGSTON Rep #: [id number] : 1980 Provider: NIGEL Medley Age/Sex: 44/F Location[place] [facility] Status: Signed Intake Vital Signs 12/22/24 15:18 Height 5 ft 4 in Intake Visit Reasons: PE NON DOT PHYSICAL/ MENA BRUSH Chief Complaint: 6wk Postop Allergies No Known Allergies Allergy (Verified 12/22/24 15:17) PFSH Medical History (Updated 02/03/25 @ 13:11 by Kvng MANNING, PA) Physical exam, pre-employment Wears glasses Alcohol use Scoliosis Anemia Surgical History (Updated 12/26/24 @ 16:[address] Monica Davila, DO) S/P abdominal hysterectomy History of wisdom tooth extraction History of delivery Social History Smoking Status: Never smoker HPI HPI Chief Complaint: 6wk Postop Details: BONY LIVINGSTON, is a 44 F who presents to the office today for Office Procedures Physical Exam Coding PE Coding Pre-employment PE: Yes Coding Level of Care Code Attention Falguni Diagnoses Physical exam, pre-employment Z02.1 Assessment and Plan Assessment and Plan (1) Physical exam, pre-employment: Status: Acute 02/03/25 1311 Date Kvng MANNING Cosigner Signature: Date (if applicable) CC: Normal [facility] Office Visit Reporton 12-22-2024 [facility] Office Visit Report [facility] [address], [address] [place] [address] OFFICE VISIT Date of Service: 12/22/24 MR#: [id number] Acct: [id number] Name: BONY LIVINGSTON Rep #: [id number] : 1980 Provider: Dr. Monica Metcalf DO Age/Sex: 44/F [place] [facility] [place]: Signed Intake Vital Signs 10/03/24 15:15 11/26/24 09:58 12/22/24 15:17 12/22/24 15:18 Height 5 ft 4 in 5 ft 4 in 5 ft 4 in 5 ft 4 in Weight: 163 lb 4 oz BMI 28.0 BP 109/76 Intake Visit Reasons: 6 wk BALJINDER BS Chief Complaint: 6wk Postop Postal Service Window Clerk Required: No Is patient in pain?: No Allergies No Known Allergies Allergy (Verified 12/22/24 15:17) Medications ???Medication ???Instructions ???Recorded ???Confirmed ???Type ferrous sulfate 325 mg (65 mg 325 mg PO QDAY DAILY 08/18/2412/03 History iron) tablet (iron) multivitamin 1 tab PO QDAY DAILY 08/18/2412/22 History cholecalciferol (vitamin D3) 25 25 mcg PO DAILY DAILY 10/28/24 History mcg (1,000 unit) capsule milk thistle seed extract 150 1 cap PO DAILY DAILY 10/28/2412/03 History mg-artichoke leaf extract 300 mg capsule (Artichoke Premium Extract) Post menopausal: No Patient : No : No PFSH Medical History Wears glasses Alcohol use Scoliosis Anemia Surgical History S/P abdominal hysterectomy History of wisdom tooth extraction History of delivery Social History Smoking Status: Never smoker HPI 6 wk BALJINDER BS Details: BONY LIVINGSTON is a 44 year old who presents for 6 week post op abdominal hysterectomy. she has no complaints and feeling well. ROS ENT ENT: Reports system reviewed and no additional complaints, except as documented Cardio Card: Reports system reviewed and no additional complaints, except as documented Resp Resp: Denies cough, dyspnea or dyspnea on exertion GI GI: Denies abdominal pain, bloating or change in bowel habits : Denies vaginal odor or vaginal pruritus Details: lochia is mild Musc Musc: Reports system reviewed and no additional complaints, except as documented Exam Const General: cooperative, healthy appearing and comfortable Resp Effort Inspection: normal respiratory effort GI Palpation: soft and nontender Rectal Exam: other Other: cuff is intact and suture is dissolving. no bleeding or signs of infection Extrem General: no edema Coding Level of Care Code No Charge Diagnoses Status post hysterectomy Z90.710 Assessment and Plan Assessment and Plan (1) Status post hysterectomy: Status: Acute Plan: healing without complications RTO for yearly exams and PRN 12/26/24 1606 Date Monica Blancas Signature: Date (if applicable) CC: Normal [facility] Office Visit Reporton 11-26-2024 Thermostat Maker Office Visit Report [facility] [address], [address] [place] [address] OFFICE VISIT Date of Service: 11/26/24 MR#: [id number] Acct: [id number] Name: BONY LIVINGSTON Rep #: [id number] : 1980 Provider: CLAY vilchis Age/Sex: 43/F [place] [facility] Status: Signed Intake Vital Signs 10/03/24 15:15 11/11/24 11:28 11/26/24 09:54 11/26/24 09:58 Height 5 ft 4 in 5 ft 4 in 5 ft 4 in 5 ft 4 in Weight: 164 lb BMI 28.1 BP 102/64 Intake Visit Reasons: 2 wk BALJINDER BS Chief Complaint: 2 Week BALJINDER 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 Is patient in pain?: No Allergies No Known Allergies Allergy (Verified 11/26/24 09:54) Medications ???Medication ???Instructions ???Recorded ???Confirmed ???Type ferrous sulfate 325 mg (65 mg 325 mg PO QDAY DAILY 08/18/2411/02 History iron) tablet (iron) multivitamin 1 tab PO QDAY DAILY 08/18/2411/26 History cholecalciferol (vitamin D3) 25 25 mcg PO DAILY DAILY 10/28/24 History mcg (1,000 unit) capsule milk thistle seed extract 150 1 cap PO DAILY DAILY 10/28/2411/02 History mg-artichoke leaf extract 300 mg capsule (Artichoke Premium Extract) Is last menstrual period known: No Post menopausal: No Patient : No : No Control Method: Hyst [facility] Medical History Wears glasses Alcohol use Scoliosis Anemia Surgical History S/P abdominal hysterectomy History of wisdom tooth extraction History of delivery Social History Smoking Status: Never smoker HPI 2 wk BALJINDER BS Details: BONY LIVINGSTON is a 43 year old who presents for 2 week postop BALJINDER BS for large fibroid per Dr Davila. Is doing well. No longer needing pain medication. No vaginal bleeding. Some constipation Exam Const General: cooperative and no acute distress Orientation: oriented x3 GI Inspection: incision (well healed, nonerythematous) Palpation: soft and nontender Coding Level of Care Code No Charge Diagnoses Postop check Z09 Assessment and Plan Assessment and Plan (1) Postop check: Plan Routine postop care RTO 4 weeks 11/26/24 1011 Date Marta Gonzalez COMPRESSOR OPERATOR ADJUSTER COMPRESSOR OPERATOR ADJUSTER-C Cosigner Signature: Date (if applicable) CC: Normal [facility] CBC-Complete Blood Cnt No Di ffon 11-12-2024 Erythrocyte distribution width (RBC) [Ratio] 16.8 % High 11.6-14.6 [facility] Comment on above: Performed By: #### L 100.0500 #### [facility] [address] [place], [address] Hematocrit (Bld) [Volume fraction] 33.4 % Low 37-47 [facility] Comment on above: Performed By: #### L 100.0500 #### [facility] [address] [place], [address] Hemoglobin (Bld) [Mass/Vol] 10.8 g/dL Low 12.0-15.0 [facility] Comment on above: Performed By: #### L 100.0500 #### [facility] [address] [place], [address] MCH (RBC) [Entitic mass] 29.6 pg Normal 27.0-32.0 [facility] Comment on above: Performed By: #### L 100.0500 #### [facility] [address] [place], [address] MCHC (RBC) [Mass/Vol] 32.3 g/dL Normal 32-36 [facility] Comment on above: Performed By: #### L 100.0500 #### [facility] [address] [place], [address] MCV (RBC) [Entitic vol] 91.5 fL Normal 81-99 [facility] Comment on above: Performed By: #### L 100.0500 #### [facility] [address] [place], [address] Platelet mean volume (Bld) [Entitic vol] 10.6 fL Normal 6.2-12.0 [facility] Comment on above: Performed By: #### L 100.0500 #### [facility] [address] [place], [address] Platelets (Bld) [#/Vol] 316 10*3/uL Normal 150-450 [facility] Comment on above: Performed By: #### L 100.0500 #### [facility] [address] [place], [address] RBC (Bld) [#/Vol] 3.65 10*6/uL Low 4.2-5.4 [facility] Comment on above: Performed By: #### L 100.0500 #### [facility] [address] [place], [address] RDW SD 56.7 fl High 35.1-43.9 [facility] Comment on above: Performed By: #### L 100.0500 #### [facility] [address] [place], [address] WBC (Bld) [#/Vol] 14.1 10*3/uL High 4.4-11.0 [facility] Comment on above: Performed By: #### L 100.0500 #### [facility] [address] [place], [address] Erythrocyte distribution wid th ratioOrdered By: Monica Pina on 11-12-2024 Erythrocyte distribution width (RBC) [Ratio] 16.8 % High 11.6-14.6 [facility] Erythrocyte distribution wid th standard deviationOrdered By: Monica Pina on 11-12-2024 Erythrocyte distribution width (RBC) [Entitic vol] 56.7 fL High 35.1-43.9 [facility] Erythrocyte distribution width (RBC) [Ratio] 56.7 fl High 35.1-43.9 [facility] Hematocrit Auto (Bld) [Volum e fraction]Ordered By: Monica Pina on 11-12-2024 Hematocrit (Bld) [Volume fraction] 33.4 % Low 37-47 [facility] Hemoglobin measurementOrdere d By: Monica Pina on 11-12-2024 Hemoglobin (Bld) [Mass/Vol] 10.8 g/dL Low 12.0-15.0 [facility] MCV (mean corpuscular volume ) determinationOrdered By: Monica Pina on 11-12-2024 MCV (RBC) [Entitic vol] 91.5 fL 81-99 [facility] Mean corpuscular hemoglobin (MCH) determinationOrdered By: Monica Pina on 11-12-2024 MCH (RBC) [Entitic mass] 29.6 pg 27.0-32.0 [facility] Mean corpuscular hemoglobin concentration (MCHC) determinationOrdered By: Monica Pina on 11-12-2024 MCHC (RBC) [Mass/Vol] 32.3 g/dL 32-36 [facility] Mean platelet volume determi nationOrdered By: Monica Pina on 11-12-2024 Platelet mean volume (Bld) [Entitic vol] 10.6 fL 6.2-12.0 [facility] Platelet countOrdered By: Maurice Pina on 11-12-2024 Platelets (Bld) [#/Vol] 316 10*3/uL 150-450 [facility] RBC Auto (Bld) [#/Vol]Ordere d By: Monica Pina on 11-12-2024 RBC (Bld) [#/Vol] 3.65 10*6/uL Low 4.2-5.4 [facility] White blood cell (WBC) count Ordered By: Monica Pina on 11-12-2024 WBC (Bld) [#/Vol] 14.1 10*3/uL High 4.4-11.0 [facility] Bedside Glucoseon 11-11-2024 FINGERSTICK GLU 100 mg/dL Normal 74-106 [facility] Comment on above: Result Comment: NICCI GEMENT OF PATIENT CARE PER NURSING PROTOCOL Performed By: #### L 501.080 ####[facility] [id number] [place], [address] Glucose measurement at bedsi deOrdered By: Monica Pina on 11-11-2024 Bedside Glucose (Misc Panel) 100 mg/dL 74-106 [facility] Comment on above: MANAGEMENT OF PATIEN T CARE PER NURSING PROTOCOL Glucose [Mass/Vol] 100 mg/dL 74-106 [facility] Comment on above: MANAGEMENT OF PATIEN T CARE PER NURSING PROTOCOL MR/POSTOP.ANEon 11-11-2024 MR/POSTOP.[facility] Medical Records Department [address] [place] [address] Anesthesia Postop Eval I 11/11/241715 MR#: [id number] Acct: [id number] Name: BONY LIVINGSTON Rep #: [id number] : 1980 43 From: Omkar Meyer MD PCP: SANJANA KitchenC Status:ADM IN Y Race: C Location: [place] [address] Anesthesia: Postop Eval I Current Vital Signs Temperature: 97.9 F Pulse Rate: 80 Blood Pressure: 99/63 Respiratory Rate: 16 Pulse Ox: 98 Oxygen Delivery Method: Nasal Cannula Oxygen Flow Rate (L/min): 4 Assessment Airway patent: Yes Spontaneous unlabored respirations: Yes Mental status: Awake nausea: No Vomiting: No Anesthesia Complication: No Fluid Hydration Crystalloid volume administer (ml): 1,000 (See intraop record. - may not be accurate) Total IV fluid infused: 1,000 Progress Note Anesthesia document: Postop Eval 1 completed: Yes 11/11/241717 Date Omkar Meyer MD Cosigner Signature: Date CC: Signed Normal [facility] MR/[id number] 11-11-2024 [facility] Medical Records Department [address] [place] [address] Anesthesia Postop Eval II 11/11/241717 MR#: [id number] Acct: [id number] Name: BONY LIVINGSTON Rep #: [id number] : 1980 43 From: Omkar Meyer MD PCP: CLAY Kitchen Status:ADM IN Y Race: C Location: MS3 [id number] Anesthesia Postop Eval I Sum Postop Eval Completion status Anesthesia document: Postop Eval 1 completed: Yes Anesthesia Postop Eval I Summary Anesthesia Postop Eval I Summary: Anesthesia Postop Eval I: Assessment Summary Airway patent Yes 11/11/24 17:18 Spontaneous unlabored Yes 11/11/24 17:18 respirations Mental status Awake 11/11/24 17:18 nausea No 11/11/24 17:18 Vomiting No 11/11/24 17:18 Anesthesia Postop Eval I: Fluid Summary Crystalloid volume administer 1,000 - See 11/11/24 17:18 (ml) intraop record. - may not be accurate Colloids volume administered ( ml) Blood Product volume administered (ml) Total IV fluid infused 1,000 11/11/24 17:18 Anesthesia Postop Eval I: Summary Notes Anesthesia Complication No 11/11/24 17:18 Anesthesia Complication Comment: Post-operative progress note Anesthesia: Postop Eval II Evaluation Mental status: Awake Pain Level: 1 nausea: No Vomiting: No Complications Anesthesia Complication: No 11/11/24 1718 Date Omkar Meyer MD Cosigner Signature: Date CC: Signed Normal [facility] Operative Reporton 5 Operative Report [facility] Medical Records Department [address] [place] [address] Operative Report 11/11/24 0931 MR#: [id number] Acct: [id number] Name: BONY LIVINGSTON Rep #: [id number] : 1980 43 From: Monica Davila DO PCP: CLAY Kitchen Status:ADM IN Location: [facility]- Problems Associated Problem List Diagnoses (1) Menorrhagia: (2) Fibroid uterus: (3) Anemia: Multi Select Codes Urinary/Genital Urinary/Genital CPT Codes: 16121 [facility] Operative Report (Standard) Operative Information Date of Procedure: 11/11/24 Pre-Operative Diagnosis: enlarged fibroid uterus, menorrhagia Post-Operative Diagnosis: enlarged fibroid uterus, menorrhagia Surgery/Procedure Performed: total abdominal hysterectomy, bilateral salpingectomy swift tender: Yes Collar Packer: Keara Alvarez Tasks completed by first mate: Opening, Closing, Hemostasis: Clamp, Hemostasis: Tie, Hemostasis: Electrocautery and Retracting Additional patent legal assistant?: No Type of Anesthesia: General RN Documented Start/Stop Times: Operation Date: 11/11/24 07:30 Case Time Into Pre-Op 11/11/24 05:35 Out of Pre-Op 11/11/24 07:25 Anesthesia Start 11/11/24 07:29 Into Room 11/11/24 07:29 Procedure Start 11/11/24 07:58 Procedure End 11/11/24 09:26 Procedure Start Time: 07:58 Procedure Stop Time: 09:26 Select all DRAINS/GRAFTS/IMPLAN TS that apply: None Estimated Blood Loss: 100cc Specimen collected: Yes Description of specimen(s) removed: uterus and tubes Description of surgery: The patient was taken to the operating room and placed under general anesthesia in the dorsal supine position. She was prepped and draped in the normal sterile fashion. Trivedi catheter was placed in the bladder SCDs were on and preoperative antibiotics were given. A Pfannenstiel skin incision was made with the scalpel and carried through the underlying layer of the fascia with the scalpel, fascia was nicked in the midline, incision extended laterally. Rectus bellies were dissected off superiorly and inferiorly sharply and bluntly and peritoneum entered digitally, incision stretched laterally and the retractor was placed after the bowel was packed away. The uterus was identified and noted to be significantly enlarged approximately 20 cm with multiple large fibroids. The ovaries were noted to be within normal limits. The fallopian tubes were elavated bilaterally and the mesosapinx clamped cut and burned with a hand held ligasure device. The round ligaments were transected bilaterally and using the lagasure. The broad ligament was opened up and the utero-ovarian ligament vessels were double clamped cut and suture ligated with 0 Vicryl. The bladder flap was created taking down the vesicouterine peritoneum and the uterine vessels were skeletonized and clamped cut and suture ligated with 0 Monocryl bilaterally. The cardinal ligament were then clamped cut and suture ligated bilaterally with 0 Vicryll followed by progressive bites of the parametrium down to the level of the cervix. Good attention was paid to keep the bladder inferior to the clamps and dissected off of the cervix and lower uterine corpus. The clamps were then placed underneath the cervix bilaterally the uterus amputated off of the vaginal stump and the vaginal cuff was suture ligated with 0 vicryl [id number] sutures ???3. Excellent hemostasis was noted with some raw appearance which was covered with hemoblast after irrigation. Bilateral fallopian tubes were then removed excellent hemostasis was noted all instruments removed from the abdomen and the peritoneum was closed with 3-0 Monocryl fascia closed with 0 stratafix. The subcutaneous tissue reapproximated with 3-0 vicryl and the skin closed with 4-0 Monocryl. Patient was awoken and taken recovery in stable condition. Surgical Findings: uterus weighing 2134 grams (4 lbs 7 oz) Complications Complications: No Admit VTE Documentation VTE Present on Admission: No VTE Mechan Device Prophylaxis: SCD's VTE Pharm Prophylaxis ordered?: Yes 11/11/24 0937 Cosigner Signature (if applicable): CC: CLAY Hope; Dr. Monica Davila, DO Signed Normal [facility] ,Urineon 11-11-2024 Beta HCG ( test) Ql (U) Negative Normal [facility] Comment on above: Result Comment: Very dilute urine specimens, as indicated by a low specific gravity, may not contain c s s representative levels of hCG. If is still suspected, a first morning urine specimen should be collected 48 hours later and tested. Performed By: #### L 400.7600 ####[facility] [address] [place], [address] Surgery Specimen Level Von 0 11-11-2024 Surgery Specimen Level V ----- Patient Age/Sex Location Account Attending Physician BONY LIVINGSTON 43/F MS3 [id number] Dr. Monica Davila, Adriano Specimen: [id number] Received: 11/11/24 Status: JAYNE Brizuelaashu Num: [id number] Spec Type: UTERUS Subm Dr: Dr. Monica Davila, DO HEAD OPERATION: ERAS, hysterectomy, BALJINDER, bilateral salpingectomy PRE-OP DIAGNOSIS: Menorrhagia TISSUE SUBMITTED: Uterus and bilateral fallopian tubes MICROSCOPIC DIAGNOSIS UTERUS WITH BILATERAL FALLOPIAN TUBES, HYSTERECTOMY WITH BILATERAL SALPINGECTOMY: Cervix: SOFIA I, Nabothian cysts, tunnel clusterEndometrium: SecretoryMyometrium: LeiomyomataFallopian tubes: 2 completely transected fallopian tubes with paratubal cysts COMMENT German Redding M.D., 11/15/24 MICROSCOPIC DESCRIPTION Slides are reviewed. GROSS DESCRIPTION The specimen is received fresh labeled with the patient's name, accession number and uterus and bilateral fallopian tubes. It consists of a uterus with attached cervix and 2 detached undesignated fallopian tubes. The uterus weighs 2080 gm and measures 20 x 19 x 11 cm. The ectocervical mucosa is white, smooth and shiny, and the os is small and round. The uterus is opened, revealing the endocervical canal to measure 4 cm in length and to be hampton and trabecular. The endometrial canal is 17.5 cm long by 6 cm from cornu to cornu. It has a maximum thickness of 7 mm. It is hampton and velvety. The myometrium is distorted by multiple whorled white nodules which range in size from 0.4 cm to 13 x 9 x 9 cm. The nodules are located intramurally, subserosally and submucosally. The largest nodule has gelatinous, degenerated-appearin g areas. The other nodules have firm rubbery whorled white surfaces. The first detached undesignated fallopian tube measures 7 x 1.3 x 1 cm. It has a fimbriated end and a purple congested-appearing serosal surface. The second fallopian tube also has a fimbriated end and it measures 7 x 1.3 x 0.8 cm. It also has a purple, congested-appearing serosal surface, with no lesions identified. RS 13. 11/12/24 Cassette summary: A1-anterior cervix A2-posterior cervix A3-anterior endometrium A4-posterior endometrium A7-T29-iwldsam nodule Patient Age/Sex Location Account Attending Physician BONY LIVINGSTON / MS3 [id number] Adriano Sung L16-yixyck-qiaergg nodule T93-oqksy fallopian tube I84-ojqnfx fallopian tube CPT: 60195, TC:1 Patient Age/Sex Location Account Attending Physician BONY LIVINGSTON / MS3 [id number] Adriano Sung Signed (signature on file) Dr. Dexter Redding MD 11/15/24 1856 Normal [facility] Comment on above: Performed By: #### P SUV #### [facility] [address], [place], [id number] Urine testOrdered By: Monica Pina on 11-11-2024 HCG ( test) Ql (U) Negative [facility] Comment on above: Very dilute urine sp ecimens, as indicated by a low specificgravity, may not contain c s s representative levels of hCG. If is still suspected, a first morning urinespecimen should be collected 48 hours later and tested. CBC-Complete Blood Cnt No Di ffon 11-10-2024 Erythrocyte distribution width (RBC) [Ratio] 16.4 % High 11.6-14.6 [facility] Comment on above: Performed By: #### L 100.0500, BTSPAT, L501.5200 ####[facility] [address] [place], [place], [address] Hematocrit (Bld) [Volume fraction] 37.8 % Normal 37-47 [facility] Comment on above: Performed By: #### L 100.0500, BTSPAT, L501.5200 ####[facility] [address] [place], [place], [phone] Hemoglobin (Bld) [Mass/Vol] 12.4 g/dL Normal 12.0-15.0 [facility] Comment on above: Performed By: #### L 100.0500, BTSPAT, L501.5200 ####[facility] [address] [place], [address] MCH (RBC) [Entitic mass] 29.5 pg Normal 27.0-32.0 [facility] Comment on above: Performed By: #### L 100.0500, BTSPAT, L501.5200 ####[facility] [address] [place], [address] MCHC (RBC) [Mass/Vol] 32.8 g/dL Normal 32-36 [facility] Comment on above: Performed By: #### L 100.0500, BTSPAT, L501.5200 ####[facility] [address] [place], [address] MCV (RBC) [Entitic vol] 90.0 fL Normal 81-99 [facility] Comment on above: Performed By: #### L 100.0500, BTSPAT, L501.5200 ####[facility] [address] [place], [address] Platelet mean volume (Bld) [Entitic vol] 11.1 fL Normal 6.2-12.0 [facility] Comment on above: Performed By: #### L 100.0500, BTSPAT, L501.5200 ####[facility] [address] [place], [address] Platelets (Bld) [#/Vol] 387 10*3/uL Normal 150-450 [facility] Comment on above: Performed By: #### L 100.0500, BTSPAT, L501.5200 ####[facility] [address] [place], [address] RBC (Bld) [#/Vol] 4.20 10*6/uL Normal 4.2-5.4 [facility] Comment on above: Performed By: #### L 100.0500, BTSPAT, L501.5200 ####[facility] [address] [place], [address] RDW SD 54.4 fl High 35.1-43.9 [facility] Comment on above: Performed By: #### L 100.0500, BTSPAT, L501.5200 ####[facility] [address] [place], [address] WBC (Bld) [#/Vol] 9.7 10*3/uL Normal 4.4-11.0 [facility] Comment on above: Performed By: #### L 100.0500, BTSPAT, L501.5200 ####[facility] [address] [place], [address] Erythrocyte distribution wid th ratioOrdered By: Monica Pina on 11-10-2024 Erythrocyte distribution width (RBC) [Ratio] 16.4 % High 11.6-14.6 [facility] Erythrocyte distribution wid th standard deviationOrdered By: Monica Pina on 11-10-2024 Erythrocyte distribution width (RBC) [Entitic vol] 54.4 fL High 35.1-43.9 [facility] Erythrocyte distribution width (RBC) [Ratio] 54.4 fl High 35.1-43.9 [facility] Hematocrit Auto (Bld) [Volum e fraction]Ordered By: Monica Pina on 11-10-2024 Hematocrit (Bld) [Volume fraction] 37.8 % 37-47 [facility] Hemoglobin measurementOrdere d By: Monica Pina on 11-10-2024 Hemoglobin (Bld) [Mass/Vol] 12.4 g/dL 12.0-15.0 [facility] MCV (mean corpuscular volume ) determinationOrdered By: Monica Pina on 11-10-2024 MCV (RBC) [Entitic vol] 90.0 fL 81-99 [facility] Magnesiumon 11-10-2024 Magnesium [Mass/Vol] 2.0 mg/dL Normal 1.5-2.2 [facility] Comment on above: Performed By: #### L 100.0500, BTSPAT, L501.5200 ####[facility] [address] [place], [address] Magnesium (Unsp spec) [Mass/ Vol]Ordered By: Monica Pina on 11-10-2024 Magnesium [Mass/Vol] 2.0 mg/dL 1.5-2.2 [facility] Magnesium measurement (mass/ volume)Ordered By: Monica Pina on 11-10-2024 Magnesium (Unsp spec) [Mass/Vol] 2.0 mg/dL 1.5-2.2 [facility] Mean corpuscular hemoglobin (MCH) determinationOrdered By: Monica Pina on 11-10-2024 MCH (RBC) [Entitic mass] 29.5 pg 27.0-32.0 [facility] Mean corpuscular hemoglobin concentration (MCHC) determinationOrdered By: Monica Pina on 11-10-2024 MCHC (RBC) [Mass/Vol] 32.8 g/dL 32-36 [facility] Mean platelet volume determi nationOrdered By: Monica Pina on 11-10-2024 Platelet mean volume (Bld) [Entitic vol] 11.1 fL 6.2-12.0 [facility] Platelet countOrdered By: Maurice Pina on 11-10-2024 Platelets (Bld) [#/Vol] 387 10*3/uL 150-450 [facility] RBC Auto (Bld) [#/Vol]Ordere d By: Monica Pina on 11-10-2024 RBC (Bld) [#/Vol] 4.20 10*6/uL 4.2-5.4 [facility] Type AND Screen - PAT ONLYon 11-10-2024 Ab SCREEN GEL Negative Normal [facility] Comment on above: Order Comment: Reaso n for Laboratory Test [id number] Performed By: #### L 100.0500, BTSPAT, L501.5200 ####[facility] [address] [place], [place], [address] ABO and Rh group Nom (Bld) Blood group A Rh(D) positive Normal [facility] Comment on above: Order Comment: Desiree kent for Laboratory Test [id number] Performed By: #### L 100.0500, BTSPAT, L501.5200 ####[facility] [address] [place], [address] White blood cell (WBC) count Ordered By: Monica Pina on 11-10-2024 WBC (Bld) [#/Vol] 9.7 10*3/uL 4.4-11.0 [facility] Thermostat Maker Office Visit Reporton 10-31-2024 Thermostat Maker Office Visit Report [facility]'[address], [address] [place] [address] OFFICE VISIT Date of Service: 10/31/24 MR#: [id number] Acct: [id number] Name: BONY LIVINGSTON Rep #: [id number] : 1980 Provider: Dr. Monica Metcalf, Age/Sex: 43/F [place] [facility] [place]: Signed Intake Vital Signs 10/03/24 15:15 10/31/24 13:19 10/31/24 13:21 Height 5 ft 4 in 5 ft 4 in 5 ft 4 in Weight: 167 lb BMI 28.6 BP 106/72 Intake Visit Reasons: [facility] Postal Service Window Clerk Required: No Is patient in pain?: No Allergies No Known Allergies Allergy (Verified 10/31/24 13:19) Medications ???Medication ???Instructions ???Recorded ???Confirmed ???Type ferrous sulfate 325 mg (65 mg 325 mg PO QDAY DAILY 08/18/2410/05 History iron) tablet (iron) multivitamin 1 tab PO QDAY DAILY 08/18/2410/31 History cholecalciferol (vitamin D3) 25 25 mcg PO DAILY DAILY 10/28/24 History mcg (1,000 unit) capsule milk thistle seed extract 150 1 cap PO DAILY DAILY 10/28/2410/05 History mg-artichoke leaf extract 300 mg capsule (Artichoke Premium Extract) Post menopausal: No Patient : No : No PFSH Medical History Wears glasses Alcohol use Scoliosis Anemia Surgical History History of wisdom tooth extraction History of delivery Social History Smoking Status: Never smoker [facility] BS Details: BONY LIVINGSTON is a 43 year old (2 sections) who presents for preoperative examination. She is scheduled for a total abdominal hysterectomy. EMB was benign. Ultrasound on 07/03/24 showed the following: INDICATION: RLQ pain EXAMINATION: Ultrasound US Pelvis Non-OB Complete TECHNIQUE: Transabdominal and transvaginal pelvic ultrasound was performed. Grayscale, spectral waveform, and color flow Doppler evaluation of the adnexa. COMPARISON: No relevant prior comparison study available ____ FINDINGS: UTERUS: Anteverted. The uterus measures 17.8 x 17.6 x 5.4 cm. Multiple masses are seen in the uterus consistent with uterine fibroids. There is a large mass on the right side of the uterus measuring about 6.6 cm. There is another pedunculated mass near the fundus of the uterus measuring about 6.6 cm. Another large mass is seen in the body of the uterus close to the endometrial canal measuring about about 11.8 x 11.3 x 8.4 cm. The endometrial stripe is not visualized. RIGHT OVARY: 3.2 x 2.5 x 2.1 cm. Non-enlarged, normal echogenicity. There is normal arterial inflow and venous outflow present in the right ovary. LEFT OVARY: 4.6 x 2.9 x 2.4 cm. There is a 2.5 cm cyst in the left ovary. There is normal arterial inflow and venous outflow present in the left ovary. FREE FLUID: None. US/Pelvic (Non ) IMPRESSION: 1. Enlarged uterus with multiple masses consistent with uterine fibroids. 2. Large mass in the body of the uterus may be extending or arising from the endometrial canal. 3. Small left ovarian cyst. sound on 07/03/24 showed the following She states that her mom also had a fibroid uterus. She denies family history of uterine cancer. ROS Const ROS Unobtainable: All systems reviewed are unremarkable except as noted in H Resp Resp: Reports system reviewed and no additional complaints, except as documented; Denies cough GI GI: Reports as per HPI Psych Psych: Reports system reviewed and no additional complaints, except as documented Exam Const General: cooperative, healthy appearing, comfortable and no acute distress Resp Effort Inspection: normal respiratory effort Skin General: no rashes or lesions noted Psych Appearance: grossly normal Speech and Movement: speech and movement normal Coding Level of Care Code Off vis,est,level 4 Diagnoses Menorrhagia N92.0 Fibroid uterus D25.9 Anemia D64.9 Assessment and Plan Assessment and Plan (1) Menorrhagia: Status: Acute (2) Fibroid uterus: Status: Acute (3) Anemia: Status: Acute Comment: ON FE Plan After discussing the patient's diagnosis and treatment plan options, patient wishes to proceed with surgical management. I have discussed with the patient the risks, benefits, and alternatives of the procedure which include but are not limited to risks of anesthesia, bleeding, infection, possible damage to bowel, bladder, or surrounding vasculature which could lead to additional surgery to evaluate any complications. Patient agrees to procedure and wishes to proceed. ACOG/uptodate references given for additional information regarding pr (more content not included)... Normal [facility] Thermostat Maker Office Visit Reporton 10-03-2024 Thermostat Maker Office Visit Report [facility] [address], [address] [place] [address] OFFICE VISIT Date of Service: 10/03/24 MR#: [id number] Acct: [id number] Name: BONY LIVINGSTON Rep #: [id number] : 1980 Provider: Dr. Monica Metcalf DO Age/Sex: 43/F [place] [facility] Status: Signed Intake Vital Signs 08/21/24 13:37 10/03/24 15:15 10/03/24 15:15 Height 5 ft 4 in 5 ft 4 in 5 ft 4 in Weight: 168 lb 4 oz BMI 28.8 BP 112/76 Intake Visit Reasons: EMB Postal Service Window Clerk Required: No Is patient in pain?: No Allergies No Known Allergies Allergy (Verified 10/03/24 15:14) Medications ???Medication ???Instructions ???Recorded ???Confirmed ???Type B tcyohqu-B-P-Zn tablet tab PO 08/18/24 10/03/24 History ferrous sulfate 325 mg (65 mg 325 mg PO QDAY 08/18/24 10/03/24 H istory iron) tablet (iron) multivitamin 1 tab PO QDAY 08/18/24 10/03/24 Hi story Post menopausal: No Patient : No : No PFSH PFSH Medical History (Updated 08/21/24 @ 14:48 by Jabier MANNING, PA) Anemia Surgical History (Updated 08/21/24 @ 13:38 by Mya Arana) History of wisdom tooth extraction History of delivery HPI EMB Details: BONY LIVINGSTON is a 43 year old who presents for endometrial biopsy. She has an 11 cm fibroid in the mid body of the uterus that is compressing on the canal and I have informed her that I may not be able to pass the pipelle through. ROS Const ROS Unobtainable: All systems reviewed are unremarkable except as noted in H Resp Resp: Reports system reviewed and no additional complaints, except as documented; Denies cough GI GI: Reports as per HPI Psych Psych: Reports system reviewed and no additional complaints, except as documented Exam Const General: cooperative, healthy appearing, comfortable and no acute distress Resp Effort Inspection: normal respiratory effort General: bimanual renal exam normal bilaterally External Female Exam: normal appearance of the urethra Urethra: normal appearance of the urethra Speculum Exam - Vagina: normal appearance of the vagina Speculum Exam - Cervix: normal appearance of the cervix Bimanual Exam- Adnexa, other: normal adnexae and normal Pelvic Support: normal Skin General: no rashes or lesions noted Psych Appearance: grossly normal Speech and Movement: speech and movement normal Office Procedures Endometrial Biopsy Endometrial Biopsy Test: Yes declined Consent Signed: Yes Time out checklist: patient tenaculum used: Yes dilator used: No Details: Cervix prepped with betadine and pipelle inserted into uterus without complication. (inserted to 7 cm then stopped)Specimen obtained and sent to lab for analysis. All instruments removed from vagina without complications. Excellent hemostasis noted. Coding Level of Care Code Attention Outbound Call Center Representative Diagnoses Fibroid uterus D25.9 Anemia D64.9 Menorrhagia N92.0 CPT Codes Endometrial Biopsy (78382) Assessment and Plan Assessment and Plan (1) Fibroid uterus: Status: Acute (2) Anemia: Status: Acute (3) Menorrhagia: Status: Acute Orders: Orders Endometrial Biopsy Today N92.0 - Excessive and frequent menstruation with regular cycle Plan next is to return for pre-op for abdominal hysterectomy. emb performed but no all the way to fundus. 10/03/24 1556 Date Monica Davila DO [facility] Signature: Date (if applicable) CC: Normal [facility] Surgery Specimen Level Marianela 10-03-2024 Surgery Specimen Level IV Patient Age/Sex Location Account Attending Physician BONY LIVINGSTON 43/F LABSPEC [id number] Dr. Monica Davila, Adriano Specimen: [id number] Received: 10/03/24 Status: JAYNE Hough Num: [id number] Spec Type: ENDOM BX/C Subm Dr: Dr. Monica Davila [facility] OPERATION: Endometrial biopsy PRE-OP DIAGNOSIS: Menorrhagia TISSUE SUBMITTED: Endometrial lining MICROSCOPIC DIAGNOSIS Endometrial biopsy: Blood admixed with portions of endocervix showing mild chronic inflammation and focal squamous metaplasia. Rare scant portions of broken-down endometrium, benign. See comment. CARLOS MANUEL.mr 10/07/2024 COMMENT There is minimal endometrial tissue for evaluation therefore, should endometrial pathology continue to be suspected, a curetting specimen may provide more material for evaluation if clinically indicated. Immunohistochemistry ([id number]) supports the above diagnosis. Case has been reviewed in consultation with Dr. Duran who concurs with the above diagnosis. IDC:CHICO MICROSCOPIC DESCRIPTION Slides are reviewed. GROSS DESCRIPTION Received in fixative is one container labeled with the patient's name and designated Endometrial biopsy. The specimen consists of multiple irregular fragments of hemorrhagic mucoid tissue that in aggregate measure 2.5 x 1 x 0.2 cm. The specimen is totally submitted in one cassette. CHICO. 10/06/2024 TC:3 CPT:02070 Patient Age/Sex Location Account Attending Physician BONY LIVINGSTON 43/F LABSPEC [id number] Adriano Sung Signed (signature on file) Dr. Delicia Maldonado MD 10/07/24 1503 Normal [facility] Comment on above: Performed By: #### P COLLINS ####[facility] [address] [place], [address] p16 (initial)on 10-03-2024 p16 (initial) Patient Age/Sex Location Account Attending Physician BONY LIVINGSTON 43/F LABSPEC [id number] Dr. Monica Davila, D Specimen: [id number] Received: 10/07/24 Status: JAYNE Gianluca Num: [id number] Spec Type: IMMUNO Subm Dr: Dr. Monica Davila, DO PHYSICIAN INSTITUTION [place] [address] SPECIMEN INFORMATION: Tissue Source: Endometrial biopsy Clinical Info: Menorrhagia Specimen Number: [id number] CPT code: 97413,74617 METHODOLOGY: Deparaffinized sections of prefer/formalin-fixe d tissue or PAP/DQ stained slides are incubated with monoclonal/polyclona l antibodies/oligonucl eotide probes. Localization is made via biotin free immunoperoxidase method. Appropriate controls are performed and reacted as expected. Results on target cell population are indicated in the following table: RESULTS: ANTIBODY / CLONE RESULT P16 (E6H4) positive, non-specific glandular staining Ki-67 (30-9) positive, in endometrial stromal fragments These tests were developed and their performance characteristics determined by [facility]. They may not have been cleared or approved by the U.S. Food and Drug Administration. The FDA has determined that such clearance or approval is not necessary. The above immunohistochemical/ dualISH markers are ordered and reviewed by the Pathologist. INTERPRETATION: Endometrial biopsy: Benign endocervical tissue and rare scant endometrial tissue. 10/07/2024 Signed (signature on file) Dr. Delicia Maldonado MD 10/07/24 1503 Normal [facility] Comment on above: Performed By: #### P P16 #### [facility] [address] [place], [place], [id number] Laboratory - Microbiology an d Antimicrobial susceptibilityon 08-21-2024 SARS-CoV-2 (COVID-19) RNA REJI+probe Ql (Unsp spec) Not detected [facility] No Panel Informationon 08-21 Influenza Types A,B Rapid (Clinic) Not detected [facility] Urgent Care Visit Reporton 1 10-22-2023 Urgent Care Visit Report [facility] [address], [address] [place], [place] [address] OFFICE VISIT Date of Service: 08/21/24 MR#: [id number] Acct: [id number] Name: BONY LIVINGSTON Rep #: [id number] : 1980 Provider: NIGEL Aguila Age/Sex: 43/F [place] [facility] Status: Signed Intake Vital Signs 08/21/24 13:37 Height 5 ft 4 in Weight: 171 lb 8 oz BMI 29.4 BP 110/62 Blood Pressure Location Lt brachial Position Sitting Respiration 16 Pulse 75 Pulse Source NIBP Temp 98.0 F Temp Source Oral Pulse Oximetry (%) 98 Oxygen Delivery Method room air Intake Visit Reasons: cough Chief Complaint: cough, fatigue, chest tightness Postal Service Window Clerk Required: No Is patient in pain?: No Allergies No Known Allergies Allergy (Verified 08/21/24 13:38) Is last menstrual period known: No Post menopausal: No Patient : No Have you fallen in the past year?: No Nurse's Note: cough, fatigue, chest tightness x 1 week. denies VILLARREAL, ST, fever. PFS Medical History (Updated 08/21/24 @ 14:48 by Jabier MANNING, PA) Anemia Surgical History (Updated 08/21/24 @ 13:38 by Mya Arana) History of wisdom tooth extraction History of delivery HPI HPI Chief Complaint: cough, fatigue, chest tightness Details: BONY LIVINGSTON, is a 43 F who presents to the office today for complaint of cough, fatigue, chest tightness for the past week. Patient denies fever, chills, sweats. No nausea, vomiting or diarrhea. No hemoptysis, shortness of breath or difficulty breathing. No loss of taste or smell. No other associated symptoms or alleviating/aggravat ing factors. ROS Const Constitutional: No other (6 system ROS completed with pertinent findings in the HPI otherwise normal.) Exam Const General: cooperative and well developed HENRI Head: normal to inspection and atraumatic Ears: hearing grossly normal bilaterally Nose: nasal discharge clear Face and sinus: normal facial exam Mouth: oral mucosae normal Throat: abnormal tonsil bilaterally hypertrophy 1+ Resp Effort Inspection: normal respiratory effort and no audible wheezes Auscultation: Bilateral: Clear to Auscultation Cardio Rate: regular rate Rhythm: regular rhythm Neuro General: patient alert Psych Appearance: grossly normal Mental Status: mental status grossly normal Results POC DAISY Covid FluAB PCR POC Daisy Covid PCR Not Detected Last Edit by Mya Arana on 08/21/24 13:56 POC DAISY FLU NOT DETECTED FLU A B Last Edit by Mya Arana on 08/21/24 13:56 Coding Level of Care Code Off vis,new,level 3 Diagnoses Acute bronchitis J20.9 Contact with or suspected exposure to other viral communicable disease Z20.828 Assessment and Plan Assessment and Plan (1) Acute bronchitis: Status: Acute (2) Contact with or suspected exposure to other viral communicable disease: Status: Acute Orders: Orders POC Daisy Covid FLUAB PCR Today Medications: New azithromycin take 500 mg today (day 1), then 250 mg for 4 days (days 2-5) PO 6 tabs 0RF benzonatate 200 mg (2 x 100 mg) PO TID PRN 30 caps 0RF cough Plan Patient tested negative for COVID and influenza in the office today. Azithromycin and benzonatate as prescribed today. Encouraged to get plenty of rest, drink lots of clear liquids, and use Tylenol or Ibuprofen (unless contraindicated) for fever and comfort. Patient also educated on other symptomatic management techniques. To be seen in 7-10 days if no improvement; sooner if worsening of symptoms. Patient advised of potential red flags and when appropriate to report to the ED. Patient verbalized understanding and agreement with all the above. Clinical Quality Measures Falls Risk Screening/Assistive Devices Have you fallen in the past year?: No 08/21/24 1448 Date Jabier Chamorro Signature: Date (if applicable) CC: Normal [facility] Office Visit Reporton 08-18-2024 Thermostat Maker Office Visit Report [facility] [address], [address] [place] [address] OFFICE VISIT Date of Service: 08/18/24 MR#: [id number] Acct: [id number] Name: BONY LIVINGSTON Rep #: [id number] : 1980 Provider: Dr. Monica Metcalf DO Age/Sex: 43/F Location[place] [facility] Status: Signed Intake Vital Signs 08/18/24 14:58 Weight: 176 lb BP 117/82 H Blood Pressure Location Lt brachial Position Sitting Respiration 18 Pulse 90 Pulse Source Monitor Intake Visit Reasons: ENLARGED UTERUS W/ FIBROIDS ABN MENSES ([place]) Chief Complaint: Consult enlarged uterus and fibroids Allergies No Known Allergies Allergy (Verified 08/18/24 14:59) Medications ???Medication ???Instructions ???Recorded ???Confirmed ???Type B [id number]-[id number]-E-Zn tablet tab PO 08/18/24 08/18/24 History ferrous sulfate 325 mg (65 mg 325 mg PO QDAY 08/18/24 08/18/24 History iron) tablet (iron) multivitamin 1 tab PO QDAY 08/18/24 08/18/24 History Nurse's Note: Consult enlarged uterus and fibroids PFSH Medical History Anemia Surgical History History of delivery HPI ENLARGED UTERUS W/ FIBROIDS ABN MENSES (EDMONDEYE) Details: BONY LIVINGSTON is a 43 year old (2 sections) who presents for discussion about heavy periods. She has the complaint of constipation and indigestion. Ultrasound on 07/03/24 showed the following: INDICATION: RLQ pain EXAMINATION: Ultrasound US Pelvis Non-OB Complete TECHNIQUE: Transabdominal and transvaginal pelvic ultrasound was performed. Grayscale, spectral waveform, and color flow Doppler evaluation of the adnexa. COMPARISON: No relevant prior comparison study available ____ FINDINGS: UTERUS: Anteverted. The uterus measures 17.8 x 17.6 x 5.4 cm. Multiple masses are seen in the uterus consistent with uterine fibroids. There is a large mass on the right side of the uterus measuring about 6.6 cm. There is another pedunculated mass near the fundus of the uterus measuring about 6.6 cm. Another large mass is seen in the body of the uterus close to the endometrial canal measuring about about 11.8 x 11.3 x 8.4 cm. The endometrial stripe is not visualized. RIGHT OVARY: 3.2 x 2.5 x 2.1 cm. Non-enlarged, normal echogenicity. There is normal arterial inflow and venous outflow present in the right ovary. LEFT OVARY: 4.6 x 2.9 x 2.4 cm. There is a 2.5 cm cyst in the left ovary. There is normal arterial inflow and venous outflow present in the left ovary. FREE FLUID: None. US/Pelvic (Non ) IMPRESSION: 1. Enlarged uterus with multiple masses consistent with uterine fibroids. 2. Large mass in the body of the uterus may be extending or arising from the endometrial canal. 3. Small left ovarian cyst. sound on 07/03/24 showed the following She states that her mom also had a fibroid uterus. She denies family history of uterine cancer. ROS Const ROS Unobtainable: All systems reviewed are unremarkable except as noted in H Resp Resp: Reports system reviewed and no additional complaints, except as documented; Denies cough GI GI: Reports as per HPI Psych Psych: Reports system reviewed and no additional complaints, except as documented Exam Const General: cooperative, healthy appearing, comfortable and no acute distress Resp Effort Inspection: normal respiratory effort External Female Exam: normal external appearance and normal appearance of the urethra Urethra: normal appearance of the urethra Speculum Exam - Cervix: normal appearance of the cervix Bimanual Exam- Vagina Uterus: other (uterus is wide extending from one side of the pelvis to the other w/masses.) Bimanual Exam- Adnexa, other: cul-de-sac nodularity Recto-Vaginal: cul-de-sac nodularity Skin General: no rashes or lesions noted Psych Appearance: grossly normal Speech and Movement: speech and movement normal Coding Level of Care Code Off vis,new,level 4 Diagnoses Fibroid uterus D25.9 Anemia D64.9 Menorrhagia N92.0 Assessment and Plan Assessment and Plan (1) Fibroid uterus: Status: Acute (2) Anemia: Status: Acute (3) Menorrhagia: Status: Acute Plan uterus is extremely enlarged extending from one side of pelvis to the other, there is also a large mass in the cul-de-sac. strongly recommend abdominal hysterectomy. rto for EMB. 08/18/24 1536 Date Monica Blancas Signature: Date (if applicable) CC: Normal [facility] Pelvic (Non )on 06-05 Pelvic (Non ) [facility] Imaging Services [address] [place] [id number] Pelvic (Non ) MR#: [id number] Acct: [id number] Name: BONY LIVINGSTON Rep #: [id number] : 1980 F 43 From: Ank[place] PCP: CLAY Kitchen Status: REG CLI Study: Pelvic (Non ) Date of Exam: 07/03/24 Exam# [id number] Ordering Dr: Paola Hope [id number] INDICATION: RLQ pain EXAMINATION: Ultrasound US Pelvis Non-OB Complete TECHNIQUE: Transabdominal and transvaginal pelvic ultrasound was performed. Grayscale, spectral waveform, and color flow Doppler evaluation of the adnexa. COMPARISON: No relevant prior comparison study available ____ FINDINGS: UTERUS: Anteverted. The uterus measures 17.8 x 17.6 x 5.4 cm. Multiple masses are seen in the uterus consistent with uterine fibroids. There is a large mass on the right side of the uterus measuring about 6.6 cm. There is another pedunculated mass near the fundus of the uterus measuring about 6.6 cm. Another large mass is seen in the body of the uterus close to the endometrial canal measuring about about 11.8 x 11.3 x 8.4 cm. The endometrial stripe is not visualized. RIGHT OVARY: 3.2 x 2.5 x 2.1 cm. Non-enlarged, normal echogenicity. There is normal arterial inflow and venous outflow present in the right ovary. LEFT OVARY: 4.6 x 2.9 x 2.4 cm. There is a 2.5 cm cyst in the left ovary. There is normal arterial inflow and venous outflow present in the left ovary. FREE FLUID: None. US/Pelvic (Non ) IMPRESSION: 1. Enlarged uterus with multiple masses consistent with uterine fibroids. 2. Large mass in the body of the uterus may be extending or arising from the endometrial canal. 3. Small left ovarian cyst. Electronically Signed: Ankush Hernandez MD at 16:02 EDT , CC: CLAY Hope Hand Welt Butter: Signed Normal [facility] PAP IG w/Reflex HPV GDLNon 1 ADEQ Comment Normal . [facility] Comment on above: Order Comment: Speci men Comment: [id number] Comment: Source.............Cervix;EndocervixSpecimen Comment: No. of containers..01 ThinPrep Vial Result Comment: Sati sfactory for evaluation. No endocervical component is identified. Performed By: #### L 7400.0290 ####[facility] [address] [place], [place], [id number] Age Gdln ACOG T 30-65 Normal . [facility] Comment on above: Order Comment: Speci men Comment: [id number] Comment: Source.............Cervix;EndocervixSpecimen Comment: No. of containers..01 ThinPrep Vial Performed By: #### L 7400.0290 ####[facility] [address] [place], [address] COMM . Normal . [facility] Comment on above: Order Comment: Speci men Comment: [id number] Comment: Source.............Cervix;EndocervixSpecimen Comment: No. of containers..01 ThinPrep Vial Performed By: #### L 7400.0290 ####[facility] [address] [place], [place], [address] COMMENT Comment Normal . [facility] Comment on above: Order Comment: Speci men Comment: [id number] Comment: Source.............Cervix;EndocervixSpecimen Comment: No. of containers..01 ThinPrep Vial Result Comment: This liquid based ThinPrep(R) pap test was screened with the use of an image guided system. Performed By: #### L 7400.0290 ####[facility] [address] [place], [place], [id number] DIAG Comment Normal . [facility] Comment on above: Order Comment: Speci men Comment: [id number] Comment: Source.............Cervix;EndocervixSpecimen Comment: No. of containers..01 ThinPrep Vial Result Comment: NEGA TIVE FOR INTRAEPITHELIAL LESION OR MALIGNANCY. Performed By: #### L 7400.0290 ####[facility] [address] [place], [place], [id number] HPV APTIMA, HR Negative Normal Negative [facility] Comment on above: Order Comment: Speci men Comment: [id number] Comment: Source.............Cervix;EndocervixSpecimen Comment: No. of containers..01 ThinPrep Vial Result Comment: This nucleic acid amplification test detects fourteen high- risk HPV types (16,18,31,33,35,39,45,51,52,56,58,59,66,68) without differentiation. Performed By: #### L 7400.0290 ####[facility] [address] [place], [place], [id number] HPV Shilpi Rfx Comment Normal . [facility] Comment on above: Order Comment: Speci men Comment: [id number] Comment: Source.............Cervix;EndocervixSpecimen Comment: No. of containers..01 ThinPrep Vial Result Comment: Crit eria not met, HPV Genotype not performed. Performed at: = - [facility], [place] [id number] [address] Judge: Romelia Chew MD, Phone: [phone] Performed at: - [facility] [id number] [address] Judge: Romelia Chew MD, Phone: [phone] Performed By: #### L 7400.0290 ####[facility] [address] [place], [place], [id number] PAPSMR Comment Normal . [facility] Comment on above: Order Comment: Speci men Comment: [id number] Comment: Source.............Cervix;EndocervixSpecimen Comment: No. of containers..01 ThinPrep Vial Result Comment: The Pap smear is a screening test designed to aid in the detection of premalignant and malignant conditions of the uterine cervix. It is not a diagnostic procedure and should not be used as the sole means of detecting cervical cancer. Both false-positive and false-negative reports do occur. Performed By: #### L 7400.0290 ####[facility] [address] [place], [place], [phone] PERFORM Comment Normal . [facility] Comment on above: Order Comment: Speci men Comment: [id number] Comment: Source.............Cervix;EndocervixSpecimen Comment: No. of containers..01 ThinPrep Vial Result Comment: Manda Ruiz [employer] Instrument [employer] Tool Maker (ASCP) Performed By: #### L 7400.0290 ####[facility] [address] [place], [place], [id number] CBC W/Diff, Automatedon 09- Absolute Lymph 3.02 X10 3/uL Normal 0.83-4.51 [facility] Comment on above: Performed By: #### L 503.0105, L500.4050, L503.6550, L506.1000, L503.6150, L500.4100, L506.0400, L100.0100, L501.9520 #### [facility] [address] [place], [address] Absolute Neut 4.4 X10 3/uL Normal 2.0-7.7 [facility] Comment on above: Performed By: #### L 503.0105, L500.4050, L503.6550, L506.1000, L503.6150, L500.4100, L506.0400, L100.0100, L501.9520 #### [facility] [address] [place], [address] Basophils/100 WBC (Bld) 0.7 % Normal 0-1 [facility] Comment on above: Performed By: #### L 503.0105, L500.4050, L503.6550, L506.1000, L503.6150, L500.4100, L506.0400, L100.0100, L501.9520 #### [facility] [address] [place], [address] Eosinophils/100 WBC (Bld) 2.4 % Normal 0-5 [facility] Comment on above: Performed By: #### L 503.0105, L500.4050, L503.6550, L506.1000, L503.6150, L500.4100, L506.0400, L100.0100, L501.9520 #### [facility] [address] [facility] [place] [place], [address] Erythrocyte distribution width (RBC) [Ratio] 16.5 % High 11.6-14.6 [facility] Comment on above: Performed By: #### L 503.0105, L500.4050, L503.6550, L506.1000, L503.6150, L500.4100, L506.0400, L100.0100, L501.9520 #### [facility] [address] [place], [address] Hematocrit (Bld) [Volume fraction] 33.8 % Low 37-47 [facility] Comment on above: Performed By: #### L 503.0105, L500.4050, L503.6550, L506.1000, L503.6150, L500.4100, L506.0400, L100.0100, L501.9520 #### [facility] [address] [facility] [place] [place], [address] Hemoglobin (Bld) [Mass/Vol] 10.3 g/dL Low 12.0-15.0 [facility] Comment on above: Performed By: #### L 503.0105, L500.4050, L503.6550, L506.1000, L503.6150, L500.4100, L506.0400, L100.0100, L501.9520 #### [facility] [address] [facility] [place] [place], [address] IG% 0.200 Normal 0.0-0.9 [facility] Comment on above: Result Comment: IG% - Immature Granulocytes (promyelocytes, myelocytes and metamyelocytes) > 1% indicates that a LEFT SHIFT is Present. Performed By: #### L 503.0105, L500.4050, L503.6550, L506.1000, L503.6150, L500.4100, L506.0400, L100.0100, L501.9520 #### [facility] [address] [facility] [place], [address] Lymphocytes/100 WBC (Bld) 36.1 % Normal 19-41 [facility] Comment on above: Performed By: #### L 503.0105, L500.4050, L503.6550, L506.1000, L503.6150, L500.4100, L506.0400, L100.0100, L501.9520 #### [facility] [address] [place], [address] MCH (RBC) [Entitic mass] 24.3 pg Low 27.0-32.0 [facility] Comment on above: Performed By: #### L 503.0105, L500.4050, L503.6550, L506.1000, L503.6150, L500.4100, L506.0400, L100.0100, L501.9520 #### [facility] [address] [place], [address] MCHC (RBC) [Mass/Vol] 30.5 g/dL Low 32-36 [facility] Comment on above: Performed By: #### L 503.0105, L500.4050, L503.6550, L506.1000, L503.6150, L500.4100, L506.0400, L100.0100, L501.9520 #### [facility] [address] [place], [address] MCV (RBC) [Entitic vol] 79.9 fL Low 81-99 [facility] Comment on above: Performed By: #### L 503.0105, L500.4050, L503.6550, L506.1000, L503.6150, L500.4100, L506.0400, L100.0100, L501.9520 #### [facility] [address] [place], [address] Monocytes/100 WBC (Bld) 7.7 % Normal 0-10 [facility] Comment on above: Performed By: #### L 503.0105, L500.4050, L503.6550, L506.1000, L503.6150, L500.4100, L506.0400, L100.0100, L501.9520 #### [facility] [address] [place], [address] Neutrophils/100 WBC (Bld) 52.9 % Normal 47-70 [facility] Comment on above: Performed By: #### L 503.0105, L500.4050, L503.6550, L506.1000, L503.6150, L500.4100, L506.0400, L100.0100, L501.9520 #### [facility] [address] [place], [address] Nucleated RBC (Bld) [#/Vol] 0 10*3/uL Normal 0-5 [facility] Comment on above: Performed By: #### L 503.0105, L500.4050, L503.6550, L506.1000, L503.6150, L500.4100, L506.0400, L100.0100, L501.9520 #### [facility] [address] [place], [address] Platelet mean volume (Bld) [Entitic vol] 10.5 fL Normal 6.2-12.0 [facility] Comment on above: Performed By: #### L 503.0105, L500.4050, L503.6550, L506.1000, L503.6150, L500.4100, L506.0400, L100.0100, L501.9520 #### [facility] [address] [place], [address] Platelets (Bld) [#/Vol] 456 10*3/uL High 150-450 [facility] Comment on above: Performed By: #### L 503.0105, L500.4050, L503.6550, L506.1000, L503.6150, L500.4100, L506.0400, L100.0100, L501.9520 #### [facility] [address] [place], [address] RBC (Bld) [#/Vol] 4.23 10*6/uL Normal 4.2-5.4 [facility] Comment on above: Performed By: #### L 503.0105, L500.4050, L503.6550, L506.1000, L503.6150, L500.4100, L506.0400, L100.0100, L501.9520 #### [facility] [address] [place], [address] (552) RDW SD 47.2 fl High 35.1-43.9 [facility] Comment on above: Performed By: #### L 503.0105, L500.4050, L503.6550, L506.1000, L503.6150, L500.4100, L506.0400, L100.0100, L501.9520 #### [facility] [address] [place], [address] WBC (Bld) [#/Vol] 8.4 10*3/uL Normal 4.4-11.0 [facility] Comment on above: Performed By: #### L 503.0105, L500.4050, L503.6550, L506.1000, L503.6150, L500.4100, L506.0400, L100.0100, L501.9520 #### [facility] [address] [place], [address] [facility] 05-14-2024 Albumin [Mass/Vol] 3.7 g/dL Normal 3.2-5.0 [facility] Comment on above: Performed By: #### L 503.0105, L500.4050, L503.6550, L506.1000, L503.6150, L500.4100, L506.0400, L100.0100, L501.9520 #### [facility] [address] [place], [address] Albumin/Globulin [Mass ratio] 0.8 {ratio} Low 0.9-2.4 [facility] Comment on above: Performed By: #### L 503.0105, L500.4050, L503.6550, L506.1000, L503.6150, L500.4100, L506.0400, L100.0100, L501.9520 #### [facility] [address] [place], [address] ALK P 53 U/L Normal 45-117 [facility] Comment on above: Performed By: #### L 503.0105, L500.4050, L503.6550, L506.1000, L503.6150, L500.4100, L506.0400, L100.0100, L501.9520 #### [facility] [address] [place], [address] ALT [Catalytic activity/Vol] 22 U/L Normal 13-56 [facility] Comment on above: Performed By: #### L 503.0105, L500.4050, L503.6550, L506.1000, L503.6150, L500.4100, L506.0400, L100.0100, L501.9520 #### [facility] [address] [place], [address] AST [Catalytic activity/Vol] 12 U/L Low 15-37 [facility] Comment on above: Performed By: #### L 503.0105, L500.4050, L503.6550, L506.1000, L503.6150, L500.4100, L506.0400, L100.0100, L501.9520 #### [facility] [address] [place], [address] Bilirubin [Mass/Vol] 0.30 mg/dL Normal 0.20-1.00 [facility] Comment on above: Result Comment: For patients on eltrombopag therapy, use of Dimension [place] TBIL is not recommended. Performed By: #### L 503.0105, L500.4050, L503.6550, L506.1000, L503.6150, L500.4100, L506.0400, L100.0100, L501.9520 #### [facility] [address] [place], [address] BUN/CRE 11.7 RATIO Normal 10-20 [facility] Comment on above: Performed By: #### L 503.0105, L500.4050, L503.6550, L506.1000, L503.6150, L500.4100, L506.0400, L100.0100, L501.9520 #### [facility] [address] [place], [address] CA,Total 9.2 mg/dL Normal 8.5-10.1 [facility] Comment on above: Performed By: #### L 503.0105, L500.4050, L503.6550, L506.1000, L503.6150, L500.4100, L506.0400, L100.0100, L501.9520 #### [facility] [address] [place], [address] Chloride [Moles/Vol] 106 mmol/L Normal 98-107 [facility] Comment on above: Performed By: #### L 503.0105, L500.4050, L503.6550, L506.1000, L503.6150, L500.4100, L506.0400, L100.0100, L501.9520 #### [facility] [address] [place], [address] CO2 [Moles/Vol] 25.0 mmol/L Normal 21.0-32.0 [facility] Comment on above: Performed By: #### L 503.0105, L500.4050, L503.6550, L506.1000, L503.6150, L500.4100, L506.0400, L100.0100, L501.9520 #### [facility] [address] [place], [place], [phone] (673) Creatinine [Mass/Vol] 0.60 mg/dL Normal 0.55-1.02 [facility] Comment on above: Result Comment: The validity of the calculated GFR GFRAA in patients over 70 years has not been determined. Clinical correlation is essential. Performed By: #### L 503.0105, L500.4050, L503.6550, L506.1000, L503.6150, L500.4100, L506.0400, L100.0100, L501.9520 #### [facility] [address] [place], [place], [phone] (306) EST GFR - AA 141 mL/min Normal >60 [facility] Comment on above: Result Comment: Afri can Chinese GFR Calc Performed By: #### L 503.0105, L500.4050, L503.6550, L506.1000, L503.6150, L500.4100, L506.0400, L100.0100, L501.9520 #### [facility] [address] [place], [address] GAP 7 Normal 5-15 [facility] Comment on above: Performed By: #### L 503.0105, L500.4050, L503.6550, L506.1000, L503.6150, L500.4100, L506.0400, L100.0100, L501.9520 #### [facility] [address] [place], [place], [phone] (135 GFR/1.73 sq M.predicted among non-blacks MDRD (S/P/Bld) [Vol rate/Area] 117 mL/min/{1.73_m2} Normal >60 [facility] Comment on above: Result Comment: Non- GFR Calc Performed By: #### L 503.0105, L500.4050, L503.6550, L506.1000, L503.6150, L500.4100, L506.0400, L100.0100, L501.9520 #### [facility] [address] [place], [address] Globulin (S) [Mass/Vol] 4.5 g/dL High 2.2-4.2 [facility] Comment on above: Performed By: #### L 503.0105, L500.4050, L503.6550, L506.1000, L503.6150, L500.4100, L506.0400, L100.0100, L501.9520 #### [facility] [address] [place], [address] Glucose [Mass/Vol] 91 mg/dL Normal 74-106 [facility] Comment on above: Performed By: #### L 503.0105, L500.4050, L503.6550, L506.1000, L503.6150, L500.4100, L506.0400, L100.0100, L501.9520 #### [facility] [address] [place], [address] Potassium [Moles/Vol] 3.7 mmol/L Normal 3.5-5.1 [facility] Comment on above: Performed By: #### L 503.0105, L500.4050, L503.6550, L506.1000, L503.6150, L500.4100, L506.0400, L100.0100, L501.9520 #### [facility] [address] [place], [address] Sodium [Moles/Vol] 138 mmol/L Normal 136-145 [facility] Comment on above: Performed By: #### L 503.0105, L500.4050, L503.6550, L506.1000, L503.6150, L500.4100, L506.0400, L100.0100, L501.9520 #### [facility] [address] [place], [address] T PROT 8.2 g/dL Normal 6.4-8.2 [facility] Comment on above: Performed By: #### L 503.0105, L500.4050, L503.6550, L506.1000, L503.6150, L500.4100, L506.0400, L100.0100, L501.9520 #### [facility] [address] [place], [address] Urea nitrogen [Mass/Vol] 7 mg/dL Normal 7-18 [facility] Comment on above: Performed By: #### L 503.0105, L500.4050, L503.6550, L506.1000, L503.6150, L500.4100, L506.0400, L100.0100, L501.9520 #### [facility] [address] [place], [address] Ferritinon 05-14-2024 Ferritin [Mass/Vol] 7 ng/mL Low 8-252 [facility] Comment on above: Performed By: #### L 503.0105, L500.4050, L503.6550, L506.1000, L503.6150, L500.4100, L506.0400, L100.0100, L501.9520 ####[facility] [address] [place], [address] Ironon 05-14-2024 Iron [Mass/Vol] 29 ug/dL Low 50-170 [facility] Comment on above: Performed By: #### L 503.0105, L500.4050, L503.6550, L506.1000, L503.6150, L500.4100, L506.0400, L100.0100, L501.9520 ####[facility] [address] [place], [address] Lipid Profileon 05-14-2024 Cholesterol [Mass/Vol] 208 mg/dL High 200 [facility] Comment on above: Result Comment: <200 mg/dL Desirable 200-240 mg/dL Borderline >240 mg/dL High Risk Performed By: #### L 503.0105, L500.4050, L503.6550, L506.1000, L503.6150, L500.4100, L506.0400, L100.0100, L501.9520 ####[facility] [address] [place], [address] Cholesterol in HDL [Mass/Vol] 70 mg/dL Normal [facility] Comment on above: Result Comment: The drugs N-Acetylcysteine and Metamizole may falsely depress this assay. Reference Range HDL <40 mg/dL Low HDL Cholesterol HDL >or= 60 mg/dL High HDL Cholesterol Performed By: #### L 503.0105, L500.4050, L503.6550, L506.1000, L503.6150, L500.4100, L506.0400, L100.0100, L501.9520 ####[facility] [address] [place], [address] Cholesterol in LDL [Mass/Vol] 123 mg/dL Normal 0-130 [facility] Comment on above: Performed By: #### L 503.0105, L500.4050, L503.6550, L506.1000, L503.6150, L500.4100, L506.0400, L100.0100, L501.9520 ####[facility] [address] [place], [address] Cholesterol in VLDL [Mass/Vol] 15 mg/dL Normal 5-40 [facility] Comment on above: Performed By: #### L 503.0105, L500.4050, L503.6550, L506.1000, L503.6150, L500.4100, L506.0400, L100.0100, L501.9520 ####[facility] [address] [place], [address] Triglyceride [Mass/Vol] 77 mg/dL Normal [facility] Comment on above: Result Comment: The drugs N-Acetylcysteine and Metamizole may falsely depress this assay. Serum Triglycerides Reference Interval Normal <150 mg/dL Borderline high 150 - 199 mg/dL High 200 - 499 mg/dL Very High > or = 500 mg/dL Performed By: #### L 503.0105, L500.4050, L503.6550, L506.1000, L503.6150, L500.4100, L506.0400, L100.0100, L501.9520 ####[facility] [address] [place], [place], [id number] T4 Free Directon 05-14-2024 T4 FREE DIRECT 1.19 ng/dL Normal 0.76-1.46 [facility] Comment on above: Performed By: #### L 503.0105, L500.4050, L503.6550, L506.1000, L503.6150, L500.4100, L506.0400, L100.0100, L501.9520 ####[facility] [address] [place], [place], [id number] Thyroid Stim Hormone (TSH)on 05-14-2024 TSH 1.540 uIU/mL Normal 0.358-3.740 [facility] Comment on above: Performed By: #### L 503.0105, L500.4050, L503.6550, L506.1000, L503.6150, L500.4100, L506.0400, L100.0100, L501.9520 ####[facility] [address] [place], [address] Vitamin B12on 05-14-2024 Cobalamin (Vitamin B12) [Mass/Vol] 497 pg/mL Normal 211-911 [facility] Comment on above: Performed By: #### L 503.0105, L500.4050, L503.6550, L506.1000, L503.6150, L500.4100, L506.0400, L100.0100, L501.9520 #### [facility] [address] [place], [place], [address] Vitamin D,25 Hydroxyon 05-14 Vitamin D 25-OH 19.6 ng/mL Normal [facility] Comment on above: Result Comment: Marely min D 25(OH) Status Range Deficiency <20 ng/mL (50nmol/L) Insufficiency 20 - 30 ng/mL (50 - 75 nmol/L) Sufficiency 30 - 100 ng/mL (75 - 250 nmol/L) Toxicity >100 ng/mL (>250 nmol/L) Performed By: #### L 503.0105, L500.4050, L503.6550, L506.1000, L503.6150, L500.4100, L506.0400, L100.0100, L501.9520 #### [facility] [address] [place], [place], [address] Otheron 12-13-2007 CONVERTED ELECTRONIC SIGNATURE JOSÉ LUIS HALL M.D., PATHOLOGIST (Electronic signature on file) Final Signed Out: 12/13/2007 13:25 [facility] CONVERTED FINAL DIAGNOSIS PLACENTA, THIRD TRIMESTER, DELIVERY - UNREMARKABLE THIRD TRIMESTER PLACENTA AND LARGE SEGMENTS OF BLOOD CLOT. [facility] CONVERTED ORDERING PROVIDER Ordering Provider: NOE GUZMAN JR. [facility] Vital Signs Date Time Vital Sign Value Performing Clinician Taiwo [email or web address] 12-22-2024 15:18-0400 Body height 162.56 cm Paola ALLANC Work Phone: [facility] 12-22-2024 15:17-0400 Body mass index (BMI) [Ratio] 28 kg/m2 Paola Hope NP-C Work Phone: [facility] 12-22-2024 15:17-0400 Body weight 74.04 kg Paola Hope NP-C Work Phone: [facility] 12-22-2024 15:17-0400 Diastolic blood pressure 76 mm[Hg] Paola Jayy COMPRESSOR OPERATOR ADJUSTER-C Work Phone: [facility] 12-22-2024 15:17-0400 Systolic blood pressure 109 mm[Hg] Paola Jayy COMPRESSOR OPERATOR ADJUSTER-C Work Phone: [facility] 11-26-2024 09:54-0400 Body mass index (BMI) [Ratio] 28.1 kg/m2 Paola Jayy COMPRESSOR OPERATOR ADJUSTER-C Work Phone: [facility] 11-26-2024 09:54-0400 Body weight 74.38 kg Paola Jayy COMPRESSOR OPERATOR ADJUSTER-C Work Phone: [facility] 11-26-2024 09:54-0400 Diastolic blood pressure 64 mm[Hg] Paola Jayy COMPRESSOR OPERATOR ADJUSTER-C Work Phone: [facility] 11-26-2024 09:54-0400 Systolic blood pressure 102 mm[Hg] Paola Jayy COMPRESSOR OPERATOR ADJUSTER-C Work Phone: [facility] 11-12-2024 13:48-0400 Body temperature 97.8 [degF] Paola Jayy COMPRESSOR OPERATOR ADJUSTER-C Work Phone: [facility] 11-12-2024 13:48-0400 Diastolic blood pressure 68 mm[Hg] Paola Jayy COMPRESSOR OPERATOR ADJUSTER-C Work Phone: [facility] 11-12-2024 13:48-0400 Heart rate 76 /min Paola Jayy COMPRESSOR OPERATOR ADJUSTER-C Work Phone: [facility] 11-12-2024 13:48-0400 Respiratory rate 16 /min Paola Jayy COMPRESSOR OPERATOR ADJUSTER-C Work Phone: [facility] 11-12-2024 13:48-0400 SaO2% (BldA) [Mass fraction] 97 % Paola Jayy COMPRESSOR OPERATOR ADJUSTER-C Work Phone: [facility] 11-12-2024 13:48-0400 Systolic blood pressure 108 mm[Hg] Paola Jayy COMPRESSOR OPERATOR ADJUSTER-C Work Phone: [facility] 11-11-2024 17:18-0400 Inhaled oxygen flow rate 4 L/min Paola Hope COMPRESSOR OPERATOR ADJUSTER-C Work Phone: [facility] 11-11-2024 11:28-0400 Body height 162.56 cm Paolaannalise Hope COMPRESSOR OPERATOR ADJUSTER-C Work Phone: [facility] 11-11-2024 11:28-0400 Body mass index (BMI) [Ratio] 28.8 kg/m2 Paola Jayy COMPRESSOR OPERATOR ADJUSTER-C Work Phone: [facility] 11-11-2024 11:28-0400 Body weight 76.2 kg Paola Jayy COMPRESSOR OPERATOR ADJUSTER-C Work Phone: [facility] 10-31-2024 13:19-0500 Body mass index (BMI) [Ratio] 28.6 kg/m2 Paola Jayy COMPRESSOR OPERATOR ADJUSTER-C Work Phone: [facility] 10-31-2024 13:19-0500 Body weight 75.74 kg Paola Hope COMPRESSOR OPERATOR ADJUSTER-C Work Phone: [facility] 10-31-2024 13:19-0500 Diastolic blood pressure 72 mm[Hg] Paola Jayy COMPRESSOR OPERATOR ADJUSTER-C Work Phone: [facility] 10-31-2024 13:19-0500 Systolic blood pressure 106 mm[Hg] Paola Jayy COMPRESSOR OPERATOR ADJUSTER-C Work Phone: [facility] 10-03-2024 15:15-0500 Body mass index (BMI) [Ratio] 28.8 kg/m2 Paola Jayy COMPRESSOR OPERATOR ADJUSTER-C Work Phone: [facility] 10-03-2024 15:15-0500 Body weight 76.31 kg Paola Jayy COMPRESSOR OPERATOR ADJUSTER-C Work Phone: [facility] 10-03-2024 15:15-0500 Diastolic blood pressure 76 mm[Hg] Paola Jayy COMPRESSOR OPERATOR ADJUSTER-C Work Phone: [facility] 10-03-2024 15:15-0500 Systolic blood pressure 112 mm[Hg] Paola Jayy COMPRESSOR OPERATOR ADJUSTER-C Work Phone: [facility] 08-21-2024 13:37-0500 Body mass index (BMI) [Ratio] 29.4 kg/m2 Paola Jayy COMPRESSOR OPERATOR ADJUSTER-C Work Phone: [facility] 08-21-2024 13:37-0500 Body temperature 98 [degF] Paola Jayy COMPRESSOR OPERATOR ADJUSTER-C Work Phone: [facility] 08-21-2024 13:37-0500 Body weight 77.79 kg Paola Jayy COMPRESSOR OPERATOR ADJUSTER-C Work Phone: [facility] 08-21-2024 13:37-0500 Diastolic blood pressure 62 mm[Hg] Paola Jayy COMPRESSOR OPERATOR ADJUSTER-C Work Phone: [facility] 08-21-2024 13:37-0500 Heart rate 75 /min Paola Jayy COMPRESSOR OPERATOR ADJUSTER-C Work Phone: [facility] 08-21-2024 13:37-0500 Respiratory rate 16 /min Paola Jayy COMPRESSOR OPERATOR ADJUSTER-C Work Phone: [facility] 08-21-2024 13:37-0500 SaO2% (BldA) [Mass fraction] 98 % Paola Jayy COMPRESSOR OPERATOR ADJUSTER-C Work Phone: [facility] 08-21-2024 13:37-0500 Systolic blood pressure 110 mm[Hg] Paola Jayy COMPRESSOR OPERATOR ADJUSTER-C Work Phone: [facility] 08-18-2024 14:58-0500 Body weight 79.83 kg Paola Jayy COMPRESSOR OPERATOR ADJUSTER-C Work Phone: [facility] 08-18-2024 14:58-0500 Diastolic blood pressure 82 mm[Hg] Paola Jayy COMPRESSOR OPERATOR ADJUSTER-C Work Phone: [facility] 08-18-2024 14:58-0500 Heart rate 90 /min Paola Jayy COMPRESSOR OPERATOR ADJUSTER-C Work Phone: [facility] 08-18-2024 14:58-0500 Respiratory rate 18 /min Paola Hope COMPRESSOR OPERATOR ADJUSTER-C Work Phone: [facility] 08-18-2024 14:58-0500 Systolic blood pressure 117 mm[Hg] Paola Hope COMPRESSOR OPERATOR ADJUSTER-C Work Phone: [facility] Encounters Encounter Date Encounter Type Care Provider Facility Start: 05-11-2025 ambulatory Morton Jayy Facility:[facility] Start: 02-03-2025 End: 02-03-2025 Patient encounter procedure Kvng Vivas PA -[facility] Work Phone: Start: 02-03-2025 End: 02-03-2025 ambulatory Paolaannalise Hope COMPRESSOR OPERATOR ADJUSTER-C Work Phone: [facility] Work Phone: Start: 12-22-2024 End: 12-22-[address] Monica Davila DO -[facility] Work Phone: Start: 12-22-2024 End: 12-22-2024 ambulatory [facility] Facility:[facility] Start: 11-26-2024 End: 11-26-2024 Patient encounter procedure Marta Gonzalez COMPRESSOR OPERATOR ADJUSTER-C -[facility] Work Phone: Start: 11-26-2024 End: 11-26-2024 ambulatory [facility] Facility:[facility] Start: 11-26-2024 Encounter for other preprocedural examination [facility] Start: 11-20-2024 Encounter for other preprocedural examination [facility] Start: 11-11-2024 ambulatory Dexter Redding Facility :[facility] Start: 11-11-2024 Non-patient / Non-visit Dr. Aria Redding MD -[facility] Start: 11-11-2024 End: 11-12-2024 Evaluation and management of inpatient Dr. Monica Davila DO -[facility] Work Phone: Start: 11-11-2024 Non-patient / Non-visit Dr. Maurice Davila DO -[facility] Start: 11-11-2024 ambulatory [facility] Start: 11-10-2024 End: 11-10-2024 ambulatory [facility] COMPRESSOR OPERATOR ADJUSTER-C Work Phone: [facility] Work Phone: Start: 11-10-2024 End: 11-10-[address] Monica Gonzalez, [facility] Start: 11-10-2024 End: 11-10-2024 [facility] Facility:[facility] Start: 10-31-2024 End: 10-31-2024 [facility] Facility:[facility] Start: 10-31-2024 End: 10-31-[address] Monica Davila DO -[facility] Work Phone: Start: 10-03-2024 End: 10-03-[address] Monica Rowell, [facility] Work Phone: Start: 10-03-2024 End: 10-03-[address] Monica Davila DO -[facility] Work Phone: Start: 10-03-2024 End: 10-03-2024 ambulatory [facility] Facility:[facility] Start: 10-03-2024 End: 10-03-2024 ambulatory [facility] Facility:[facility] Start: 08-21-2024 End: 08-21-2024 Patient encounter procedure Jabier [place] [facility] Work Phone: Start: 08-21-2024 End: 08-21-2024 ambulatory [facility] Start: 08-18-2024 End: 08-18-[address] Monica Davila DO -[facility] Work Phone: Start: 08-18-2024 End: 08-18-2024 ambulatory [facility] Facility:[facility] Start: 07-03-2024 End: 07-03-2024 ambulatory [facility] Facility:[facility] Start: 06-20-2024 End: 06-20-2024 ambulatory [facility] Facility:[facility] Start: 06-03-2024 Encounter for genera l adult medical examination with abnormal findings Paolaannalise Hope [facility] Start: 05-14-2024 End: 05-14-2024 ambulatory [facility] Facility:[facility] Start: 12-12-2007 End: 12-12-2007 Patient encounter procedure Noe Guzman Work Phone: [facility] Start: 12-12-2007 Results Only Noe Slade Work Phone: [facility] Procedures Date Procedure Procedure Detail Performing Clinician Start: 11-11-2024 Total abdominal hysterectomy Paola Hope COMPRESSOR OPERATOR ADJUSTER-C Work Phone: Start: 12-12-2007 CONVERTED SURGICAL PATHOLOGY Noe Guzman Work Phone: H/O: hysterectomy Status post hysterectom y Paola Hope COMPRESSOR OPERATOR ADJUSTER-C Work Phone: H/O: hysterectomy Status post hysterectom y Dr. Monica Davila DO Plan of Treatment Date Care Activity Detail Author Start: 11-12-2024 Introduction of urin randall catheter [facility] Start: 11-12-2024 [facility] Start: 11-12-2024 Patient discharge [facility] Start: 11-12-2024 Removal of urinary catheter [facility] Start: 11-11-2024 Following clinical pathway protocol [facility] Start: 11-11-2024 Ambulation therapy management [facility] Start: 11-11-2024 Continuous pulse oximetry [facility] Start: 11-11-2024 Elevation of head of bed [facility] Start: 11-11-2024 Incentive spirometry [facility] Start: 11-11-2024 Measuring intake and output [facility] Start: 11-11-2024 Notification of physician [facility] Start: 11-11-2024 Oxygen therapy [facility] Start: 11-11-2024 Patient education [facility] Start: 11-11-2024 Procedures relating to eating and drinking [facility] Start: 11-11-2024 Taking patient vital signs [facility] Start: 11-11-2024 Wound care [facility] Start: 11-11-2024 [facility] Start: 11-11-2024 Introduction of urin randall catheter [facility] Start: 11-11-2024 Admission procedure [facility] Start: 05-04-2020 Influenza vaccination INFLUENZA (#1) [facility] Start: 08-12-2013 PAP TESTING PAP TESTING [facility] Start: 2012 HPV TESTING HPV TESTING [facility] Start: 2001 Urine microalbumin profile DTAP,TDAP,TD (1 - Tdap) [facility] Start: 2000 HEPATITIS C SCREENING HEPATITIS C SC REENING [facility] Start: 2000 HIV SCREENING HIV SCREENING [facility] Patient referral [facility] Work Phone: Payers Date Payer Category Payer Self-pay 2007 Unknown [employer] C[employer] PPO [id number] 2007-Present PPO [id number] 2006 Unknown [id number] Unknown [id number] Unknown [id number] Unknown [id number] [id number] Unknown [id number] 2..[id number] Unknown [id number] [id number] Unknown [id number] 2.840.1.792610.3.579.2.462 Unknown [id number] 2.16.840.1.091319.3.579.2.462 Unknown [id number] 2.16.840.1.644624.3.579.2.462 Unknown [id number] 2.16.840.1.903048.3.579.2.462 Unknown [id number] 2.16.840.1.083758.3.579.2.462 Unknown [id number] 2.16.840.1.323010.3.579.2.462 Unknown [id number] 2.16.840.1.335820.3.579.2.462 Unknown [id number] 2.16.840.1.419606.3.579.2.462 Unknown [id number] 2.16.840.1.163572.3.579.2.462 Unknown [id number] 2.16.840.1.415619.3.579.2.462 Unknown [id number] 2.16.840.1.338434.3.579.2.462 Unknown [id number] 2.16.840.1.600936.3.579.2.462 Social History Date Type Detail Facility Start: 11-22-2007 End: 10-28-2024 Tobacco smoking status NHIS Never smoker [facility] Start: 11-22-2007 Alcohol intake Current non-dr blockmason of alcohol (finding) [facility] Sex Assigned At Not on file [facility] Start: 11-12-2024 End: 11-20-2024 Sex Female (finding) [facility] Start: 1980 Sex Assigned At Female [facility] NEGATED: Highlighted row Not [facility] Medical Equipment Procedure Code Equipment Code Equipment Origin al Text Equipment Identifier Dates Hysterectomy, total, abdominal Collagen haemostatic agent, non-antimicrobial [id number] [facility] Start: 11-11-2024 Goals Date Patient Goal Desired Activity /State Functional Status Date Assessment Result Facility 11-12-2024 Functional status Ambulates [facility] Work Phone: Mental Status Date Assessment Result Facility 11-12-2024 Cognitive function Voice/Name [facility] Work Phone: Clinical Notes 08-18-2024 to 11-12-2024 Note Date & Type Note Facility 11-12-2024 Consult note [facility] 11-12-2024 History and physical note [facility] 11-11-2024 Consult note Note Date/Time November 11, 2024 5:18pm [facility] Medical Records Department [address] [place] [address] Anesthesia Postop Eval I 11/11/241715 MR#: [id number] Acct: [id number] Name: BONY LIVINGSTON Rep #:[id number] : 1980 43 From: Omkar Meyer MD PCP: CLAY Kitchen Status:ADM IN Y Race: C Location: [place] [address] Anesthesia: Postop Eval I Current Vital Signs Temperature: 97.9 F Pulse Rate: 80 Blood Pressure: 99/63 Respiratory Rate: 16 Pulse Ox: 98 Oxygen Delivery Method: Nasal Cannula Oxygen Flow Rate (L/min): 4 Assessment Airway patent: Yes Spontaneous unlabored respirations: Yes Mental status: Awake nausea: No Vomiting: No Anesthesia Complication: No Fluid Hydration Crystalloid volume administer (ml): 1,000 (See intraop record. - may not be accurate) Total IV fluid infused: 1,000 Progress Note Anesthesia document: Postop Eval 1 completed: Yes 11/11/241717 <Electronically signed by Omkar Meyer MD> Date _ Omkar Meyer MD Cosigner Signature: Date CC: ~ Signed [facility] Work Phone: 1(820) 425-256803-11-2025 Consult note Author Omkar Meyer [facility] Note Date/Time November 12, 2024 2:4 6pm [facility] Medical Records Department [address] [place] [address] Anesthesia Postop Eval II 11/11/241717 MR#: [id number] Acct: [id number] Name: BONY LIVINGSTON Rep #:[id number] : 1980 43 From: Omkar Meyer MD PCP: CLAY Kitchen Status:ADM IN Y Race: C Location: [facility] -1 Anesthesia Postop Eval I Sum Postop Eval Completion status Anesthesia document: Postop Eval 1 completed: Yes Anesthesia Postop Eval I Summary Anesthesia Postop Eval I Summary: Anesthesia Postop Eval I: Assessment Summary 3 Airway patent Yes 11/11/24 17:18 Spontaneous unlabored Yes 11/11/24 17:18 respirations Mental status Awake 11/11/24 17:18 nausea No 11/11/24 17:18 Vomiting No 11/11/24 17:18 Anesthesia Postop Eval I: Fluid Summary Crystalloid volume administer 1,000 - See 11/11/24 17:18 (ml) intraop record. - may not be accurate Colloids volume administered ( ml) Blood Product volume administered (ml) Total IV fluid infused 1,000 11/11/24 17:18 Anesthesia Postop Eval I: Summary Notes Anesthesia Complication No 11/11/24 17:18 Anesthesia Complication Comment: Post-operative progress note Anesthesia: Postop Eval II Evaluation Mental status: Awake Pain Level: 1 nausea: No Vomiting: No Complications Anesthesia Complication: No 11/11/241717 <Electronically signed by Omkar Meyer MD> Date _ Omkar Meyer MD Cosigner Signature: Date CC: ~ Signed [facility] Work Phone: 1(107) 239-539803-11-2025 Consult note [facility] Medical Records Department [address] [place] [address] Anesthesia Postop Eval I 11/11/241715 MR#: [id number] Acct: [id number] Name: BONY LIVINGSTON Rep #:[id number] : 1980 43 From: Omkar Meyer MD PCP: SANJANA KitchenC Status:ADM IN Y Race: C Location: [place] [address] Anesthesia: Postop Eval I Current Vital Signs Temperature: 97.9 F Pulse Rate: 80 Blood Pressure: 99/63 Respiratory Rate: 16 Pulse Ox: 98 Oxygen Delivery Method: Nasal Cannula Oxygen Flow Rate (L/min): 4 Assessment Airway patent: Yes Spontaneous unlabored respirations: Yes Mental status: Awake nausea: No Vomiting: No Anesthesia Complication: No Fluid Hydration Crystalloid volume administer (ml): 1,000 (See intraop record. - may not be accurate) Total IV fluid infused: 1,000 Progress Note Anesthesia document: Postop Eval 1 completed: Yes 11/11/241717 > Date _ Omkar Meyer MD Cosigner Signature: Date CC: ~ Signed [facility]03-11-2025 Procedure note [facility] Medical Records Department [address] [place] [address] Operative Report 11/11/24930 MR#: [id number] Acct: [id number] Name: BONY LIVINGSTON Rep #:[id number] : 1980 43 From: Monica Davila DO PCP: Paola Jayy, COMPRESSOR OPERATOR ADJUSTER-C Status:ADM IN [facility] Problems Associated Problem List Diagnoses (1) Menorrhagia: (2) Fibroid uterus: (3) Anemia: Multi Select Codes Urinary/Genital Urinary/Genital CPT Codes: 80276 [facility] Operative Report (Standard) Operative Information Date of Procedure: 11/11/24 Pre-Operative Diagnosis: enlarged fibroid uterus, menorrhagia Post-Operative Diagnosis: enlarged fibroid uterus, menorrhagia Surgery/Procedure Performed: total abdominal hysterectomy, bilateral salpingectomy swift tender: Yes Collar Packer: Keara Alvarez Tasks completed by first mate: Opening, Closing, Hemostasis: Clamp, Hemostasis: Tie, Hemostasis: Electrocautery and Retracting Additional patent legal assistant?: No Type of Anesthesia: General RN Documented Start/Stop Times: Operation Date: 11/11/24 07:30 Case Time Into Pre-Op 11/11/24 05:35 Out of Pre-Op 11/11/24 07:25 Anesthesia Start 11/11/24 07:29 Into Room 11/11/24 07:29 Procedure Start 11/11/24 07:58 Procedure End 11/11/24 09:26 Procedure Start Time: 07:58 Procedure Stop Time: 09:26 Select all DRAINS/GRAFTS/IMPLANTS that apply: None Estimated Blood Loss: 100cc Specimen collected: Yes Description of specimen(s) removed: uterus and tubes Description of surgery: The patient was taken to the operating room and placed under general anesthesia in the dorsal supine position. She was prepped and draped in the normal sterilefashion. Trivedi catheter was placed in the bladder SCDs were on and preoperativeantibiotics were given. A Pfannenstiel skin incision was madewith the scalpel and carried through the underlying layer of the fascia with the scalpel, fascia was nicked in the midline, incision extended laterally. Rectus bellies were dissected off superiorly and inferiorly sharply and bluntly and peritoneum entered digitally, incision stretched laterally andthe retractor was placed after the bowel was packed away. The uterus was identified and noted to besignificantly enlarged approximately 20 cm with multiple large fibroids. The ovaries were noted to be within normal limits. The fallopian tubes were elavated bilaterally and the mesosapinx clamped cut and burned with a hand held ligasure device. The round ligaments were transected bilaterally and using the lagasure. The broad ligament was opened up and the utero-ovarian ligament vesselswere double clamped cut and suture ligated with 0 Vicryl. The bladder flap was created taking down the vesicouterine peritoneum and the uterine vessels were skeletonized and clamped cut and suture ligated with 0 Monocryl bilaterally. The cardinal ligament were then clamped cut and suture ligated lilli aterally with 0 Vicryll followed by progressive bites of the parametrium down to the level of the cervix. Good attention was paid to keep the bladder inferior to the clamps and dissected off of the cervix and lower uterine corpus. The clamps were then placed underneath the cervix bilaterally the uterus amputated off of the vaginal stump and the vaginal cuff was suture ligated with 0 vicryl [id number] sutures ?3. Excellent hemostasis was noted with some raw appearance which was covered withhemoblast after irrigation. Bilateral fallopian tubes were then removed excellent hemostasis was noted all instruments removed from the abdomen and the peritoneum was closedwith 3-0 Monocryl fascia closed with 0 stratafix. The subcutaneous tissue reapproximated with 3-0 vicryl and the skin closed with 4-0 Monocryl. Patient was awoken and taken recovery in stable condition. Surgical Findings: uterus weighing 2134 grams (4 lbs 7 oz) Complications Complications: No Admit VTE Documentation VTE Present on Admission: No VTE Mechan Device Prophylaxis: SCD's VTE Pharm Prophylaxis ordered?: Yes 11/11/24 0937 Cosigner Signature (if applicable): CC: COMPRESSOR OPERATOR ADJUSTER-C Paola Hope; Dr. Monica Davila DO~ Signed [facility]03-11-2025 History and physical note Author Monica Pina [facility] Note Date/Time November 12, 2024 2:4 6pm [facility] Medical Records Department [address] [place] [address] History & Physical Exam 11/11/24 0719 MR#: [id number] Acct: [id number] Name: BONY LIVINGSTON Rep #:[id number] : 1980 43 From: Monica Davila DO PCP: CLAY Kitchen Status:ADM IN Location: [facility] A-2 History and Physical Date of Admission: 11/11/24 Intake Vital Signs 10/03/2514:15 10/31/2512:19 10/31/2512:21 Height 5 ft 4 in 5 ft 4 in 5 ft 4 in Weight: 167 lb BMI 28.6 BP 106/72 Intake Visit Reasons: [facility] 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 Is patient in pain?: No Allergies No Known Allergies Allergy (Verified 10/31/24 13:19) Medications ?Medication ?Instructions ?Recorded ?Confirmed ?Type ferrous sulfate 325 mg (65 mg 325 mg PO QDAY DAILY 08/18/24 10/31/24 H istory iron) tablet (iron) multivitamin 1 tab PO QDAY DAILY 08/18/24 10/31/24 Hi story cholecalciferol (vitamin D3) 25 25 mcg PO DAILY DAILY 10/28/24 10/31/24 History mcg (1,000 unit) capsule milk thistle seed extract 150 1 cap PO DAILY DAILY 10/28/24 10/31/24 H istory mg-artichoke leaf extract 300 mg capsule (Artichoke Premium Extract) Post menopausal: No Patient : No : No PFSH Medical History Wears glasses Alcohol use Scoliosis Anemia Surgical History History of wisdom tooth extraction History of delivery Social History Smoking Status: Never smoker [facility] BS Details: BONY LIVINGSTON is a 43 year old (2 sections) who presents for preoperative examination. She is scheduled for a total abdominal hysterectomy. EMB was benign. Ultrasound on 07/03/24 showed the following: INDICATION: RLQ pain EXAMINATION: Ultrasound US Pelvis Non-OB Complete TECHNIQUE: Transabdominal and transvaginal pelvic ultrasound was performed. Grayscale, spectral waveform, and color flow Doppler evaluation of the adnexa. COMPARISON: No relevant prior comparison study available FINDINGS: UTERUS: Anteverted. The uterus measures 17.8 x 17.6 x 5.4 cm. Multiple masses are seen in the uterus consistent with uterine fibroids. There is a large mass on the right side of the uterus measuring about 6.6 cm. There is another pedunculated mass near the fundus of the uterus measuring about 6.6 cm. Another large mass is seen in the body of the uterus close to the endometrial canal measuring about about 11.8 x 11.3 x 8.4 cm. The endometrial stripe is not visualized. RIGHT OVARY: 3.2 x 2.5 x 2.1 cm. Non-enlarged, normal echogenicity. There is normal arterial inflow and venous outflow present in the right ovary. LEFT OVARY: 4.6 x 2.9 x 2.4 cm. There is a 2.5 cm cyst in the left ovary. There is normal arterial inflow and venous outflow present in the left ovary. FREE FLUID: None. US/Pelvic (Non ) IMPRESSION: 1. Enlarged uterus with multiple masses consistent with uterine fibroids. 2. Large mass in the body of the uterus may be extending or arising from the endometrial canal. 3. Small left ovarian cyst. sound on 07/03/24 showed the following She states that her mom also had a fibroid uterus. She denies family history of uterine cancer. ROS Const ROS Unobtainable: All systems reviewed & are unremarkable except as noted in H Resp Resp: Reports system reviewed and no additional complaints, except as documented; Denies cough GI GI: Reports as per HPI Psych Psych: Reports system reviewed and no additional complaints, except as documented Exam Const General: cooperative, healthy appearing, comfortable and no acute distress Resp Effort & Inspection: normal respiratory effort Skin General: no rashes or lesions noted Psych Appearance: grossly normal Speech and Movement: speech and movement normal Coding Level of Care Code Off vis,est,level 4 Diagnoses Menorrhagia N92.0 Fibroid uterus D25.9 Anemia D64.9 Assessment and Plan Assessment and Plan (1) Menorrhagia: Status: Acute (2) Fibroid uterus: Status: Acute (3) Anemia: Status: Acute Comment: ON FE Plan After discussing the patient's diagnosis and treatment plan options, patient wishes to proceed with surgical management. I have discussed with the patient the risks, benefits, and alternatives of the procedure which include but are notlimited to risks of anesthesia, bleeding, infection, possible damage to bowel, bladder, or surrounding vasculature which could lead to additional surgery to evaluate any complications. Patient agrees to procedure and wishes to proceed. ACOG/uptodate references given for additional information regarding procedure. plan to check hg the weekend prior to surgery plan for total abdominal hysterectomy, bs 11/11/24 0719 <Electronically signed by Monica Davila DO> Cosigner Signature (if applicable): CC: COMPRESSOR OPERATOR ADJUSTERGovind Hope; Dr. Monica Davila DO~ Signed [facility] Work Phone: 1(294) 602-507803-11-2025 Consult note Author Sandrine Wolf [facility] Note Date/Time November 11, 2024 7:1 8am [facility] Medical Records Department [address] [facility] [place] [address] Pre-Anesthesia Evaluation 11/11/24 0713 MR#: [id number] Acct: [id number] Name: BONY LIVINGSTON Rep #:[id number] : 1980 43 From: Sandrine Wolf PCP: CLAY Kitchen Status:ADM IN Y Race: C Location: [place] [address] ASA Classification* ASA Classification ASA Classification: 2 Assessment & Plan Anesthesia* Anesthesia Assessment Anesthesia Assessment: Discussed sedation and/or anesthesia options, risks, benefits, and alternatives with patient/parents/legal guardian/POA. Questions invited. The patient/parents/legal guardian/POA seems to understand and agrees to proceedwith anesthesia plan. Reviewed the physical assessment, medical history, allergy history and patient home medications list prior to surgery/procedure/anesthetic and documented any changes. Performed airway and anesthesia risk assessments. Anesthesia Type Anesthesia Type: General History Source History Obtained from:: Patient and Chart Anesthesia Focused Assessment* Temperature: 99.2 F Pulse Rate: 87 Blood Pressure: 112/72 Respiratory Rate: 18 Pulse Ox: 97 Oxygen Delivery Method: Room Air Airway Assessment Mouth opens: >3 cm Mallampati Score: II Teeth Condition: Intact Neck Range of motion (ROM): Full ROM Focused Labs Anesthesia Preop lab: CBC WBC 9.7 K/mm3 (4.4-11.0) 11/10/24 14:32 11/10/24 RBC 4.20 M/mm3 (4.2-5.4) 11/10/24 14:32 11/10/24 Hgb 12.4 g/dL (12.0-15.0) 11/10/24 14:32 11/10/24 Hct 37.8 % (37-47) 11/10/24 14:32 11/10/24 Plt Count 387 K/mm3 (150-450) 11/10/24 14:32 11/10/24 CHEMISTRY Potassium 3.7 mmol/L (3.5-5.1) 05/14/24 16:40 05/14/24 Sodium 138 mmol/L (136-145) 05/14/24 16:40 05/14/24 Magnesium 2.0 mg/dL (1.5-2.2) 11/10/24 14:32 11/10/24 BUN 7 mg/dL (7-18) 05/14/24 16:40 05/14/24 Creatinine 0.60 mg/dL (0.55-1.02) 05/14/24 16:40 05/14/24 Glucose 91 mg/dL (74-106) 05/14/24 16:40 05/14/24 POC Glucose 100 mg/dL (74-106) 11/11/24 05:57 11/11/24 TSH 1.540 uIU/mL (0.358-3.740) 05/14/24 16:40 05/04 09/26 COAG Urine Test Negative Negative 11/11/24 06:08 11/11/24 Pre-Assessment Diagnosis/Proposed Procedure Planned Operative Procedure(s): TOTAL ABDOMINAL HYSTERECTOMY, BILATERAL SALPINGECTOMY Anesthesia History 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 When Was Last Pacemaker Check QUESTION #4 FULL TEXT: You/Your Family Experience fever (hyperthermia) with Anesthesia Last Oral Intake Last Oral intake: Last Oral Intake NPO since 04:50 11/11/24 06:02 Meds taken in AM with sips of No 11/11/24 06:02 water? Meds patient instructed to take am of surgery PONV PONV - plant machinist: PONV - plant machinist Female Yes 10/28/24 08:20 HX of Motion Sickness No 10/28/24 08:20 HX of N/V After Surgery No 10/28/24 08:20 Non-Smoker Yes 10/28/24 08:20 Duration of Surgery greater Yes 10/28/24 08:20 than 60 minutes Number of Risk Factors 3 10/28/24 08:20 PONV Score Moderate Risk 10/28/24 08:20 Height & Weight Height & Weight: Anesthesia: Height & Weight Height 5 ft 4 in 11/11/24 06:02 Weight: 76.204 kg 11/11/24 06:02 Body Mass Index (BMI) 28.8 11/11/24 06:02 Respiratory Assessment Respiratory Assessment - plant machinist: Respiratory Tract Infection Hx - plant machinist Hx Respiratory Tract Infection No 10/28/24 08:20 STOP Sleep Apnea STOP Sleep Apnea - plant machinist: STOP Sleep Apnea - plant machinist Hx Hypertension No 10/28/24 08:20 Hx Sleep Apnea No 10/28/24 08:20 CPAP BIPAP Do you snore loudly (louder No 10/28/24 08:20 than talking or can be heard Do you often feel tired/ No 10/28/24 08:20 fatigued/ sleepy during daytime? Has anyone observed you stop No 10/28/24 08:20 breathing during sleep? STOP Results Negative 10/28/24 08:20 QUESTION #5 FULL TEXT : Do you snore loudly (louder than talking or can be heard through closed doors)? Tobacco Use History Tobacco Use History - plant machinist: Tobacco Use History - plant machinist Tobacco Use Smoking Status Never smoker 10/28/24 08:20 Hx Tobacco Use No 10/28/24 08:20 Years Smoking Packs Smoked per Day Smoking Cessation Date was within the last 15 years Hx Smoking Cessation Date Hx Smoking Cessation Counseling Hematologic Medial History Hematologic Hx - plant machinist: Hematologic Medical Hx - patient representative Hx of Blood Transfusion No 10/28/24 08:20 Hx of Transfusion in last 3 No 10/28/24 08:20 Months Date of Last Transfusion (if within last 3 months) Ever experience any problems No 10/28/24 08:20 with transfusion(s)? Specify any problems Hx of Preganancy in last 3 No 10/28/24 08:20 Months Nurse Filling Out Transfusion [email or web address] 10/28/24 08:20 & Questions: Date: 10/28/24 10/28/24 08:20 Time: 08:10/28/24 08:20 Patient unable to answer at this time (ie. confused, unrespo /Reproduction History /Reproductive History - plant machinist: /Reproductive Hx- plant machinist Hx Now No 10/28/24 08:20 Gestational Age (in weeks): EDC: Hx Hx Para Hx Section SAB No 10/31/24 13:21 Active Medications Active Medications: Current Medications Generic Name Dose Route Start Last Admin Trade Name Freq PRN Reason Stop Dose Admin Acetaminophen 1,000 mg 11/11/24 07:30 11/11/24 06:10 Acetaminophen 500 Mg Tablet PO 11/11/24 07:31 1,000 mg PREOP ONE Administration Celecoxib 400 mg 11/11/24 07:30 11/11/24 06:10 Celecoxib 200 Mg Capsule PO 11/11/24 07:31 400 mg X1 ONE Administration Gabapentin 600 mg 11/11/24 07:30 11/11/24 06:11 Gabapentin 600 Mg Tablet PO 11/11/24 07:31 600 mg PREOP ONE Administration Lactated Ringer's 1,000 mls @ 40 mls/hr 11/11/24 07:30 11/11/24 06:21 IV 40 mls/hr .Q25H ERICA Administration Lactated Ringer's 1,000 mls @ 70 mls/hr 11/11/24 07:30 IV .[id number] ERICA Cefazolin Sodium 2 gm/ N/A 20 mls @ 400 mls/hr 11/11/24 07:30 IV 11/11/24 07:32 PREOP ONE Insulin Human Lispro 0 unit 11/11/24 07:30 Insulin Lispro 100 Unit/Ml Insuln.Pen SC 11/11/24 18:00 Q4H PRN PRN BG >/= 180, SEE PROTOCOL Protocol Ondansetron HCl 4 mg 11/11/24 07:30 Ondansetron 4 Mg/2 Ml Vial IV 11/11/24 07:31 X1 ONE Phenazopyridine HCl 190 mg 11/11/24 07:30 11/11/24 06:10 Phenazopyridine 95 Mg Tablet PO 11/11/24 07:31 190 mg X1 ONE Administration Scopolamine HBr 1 patch 11/11/24 07:30 11/11/24 06:11 Scopolamine 1mg/72hr Patch TD 11/11/24 07:31 1 patch X1 ONE Administration PFSH Medical History Wears glasses Alcohol use Scoliosis Anemia Home Medications ?Medication ?Instructions ?Recorded ?Last Taken ?Type ferrous sulfate 325 mg (65 mg 325 mg PO QDAY DAILY 11/09/24 History iron) tablet (iron) multivitamin 1 tab PO QDAY DAILY 08/18/24 11/09/24 History cholecalciferol (vitamin D3) 25 25 mcg PO DAILY DAILY 10/28/24 11/09/24 History mcg (1,000 unit) capsule milk thistle seed extract 150 1 cap PO DAILY DAILY 10/28/24 History mg-artichoke leaf extract 300 mg capsule (Artichoke Premium Extract) Allergy/AdvReac Type Severity Reaction Status Date / Time No Known Allergies Allergy Verified 11/11/24 05:58 Surgical History History of wisdom tooth extraction History of delivery Social History Smoking Status: Never smoker Review of Systems (Anesthesia) ROS Narrative System reviewed and no additional complaints, except as documented. 11/11/2418 <Electronically signed by Sandrine Wolf > Date _ Sandrine Wolf Cosigner Signature: Date CC: ~ Signed [facility] Work Phone: 1(484) 230-802203-11-2025 [facility] Medical Records Department [address] [place] [address] History Physical Exam 11/11/24718 MR#: [id number] Acct: [id number] Name: BONY LIVINGSTON Rep #: [id number] : 1980 43 From: Monica Davila DO PCP: CLAY Kitchen Status:ADM IN Location: [place] [address] History and Physical Date of Admission: 11/11/24 Intake Vital Signs 10/03/2514:15 10/31/2512:19 10/31/2512:21 Height 5 ft 4 in 5 ft 4 in 5 ft 4 in Weight: 167 lb BMI 28.6 BP 106/72 Intake Visit Reasons: [facility] 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 Is patient in pain?: No Allergies No Known Allergies Allergy (Verified 10/31/24 13:19) Medications ???Medication ???Instructions ???Recorded ???Confirmed ???Type ferrous sulfate 325 mg (65 mg 325 mg PO QDAY DAILY 08/18/24 10/31/24 History iron) tablet (iron) multivitamin 1 tab PO QDAY DAILY 08/18/24 10/31/24 History cholecalciferol (vitamin D3) 25 25 mcg PO DAILY DAILY 10/28/24 10/31/24 History mcg (1,000 unit) capsule milk thistle seed extract 150 1 cap PO DAILY DAILY 10/28/24 10/31/24 History mg-artichoke leaf extract 300 mg capsule (Artichoke Premium Extract) Post menopausal: No Patient : No : No PFSH Medical History Wears glasses Alcohol use Scoliosis Anemia Surgical History History of wisdom tooth extraction History of delivery Social History Smoking Status: Never smoker HPI [facility] BS Details: BONY LIVINGSTON is a 43 year old (2 sections) who presents for preoperative examination. She is scheduled for a total abdominal hysterectomy. EMB was benign. Ultrasound on showed the following: INDICATION: RLQ pain EXAMINATION: Ultrasound US Pelvis Non-OB Complete TECHNIQUE: Transabdominal and transvaginal pelvic ultrasound was performed. Grayscale, spectral waveform, and color flow Doppler evaluation of the adnexa. COMPARISON: No relevant prior comparison study available FINDINGS: UTERUS: Anteverted. The uterus measures 17.8 x 17.6 x 5.4 cm. Multiple masses are seen in the uterus consistent with uterine fibroids. There is a large mass on the right side of the uterus measuring about 6.6 cm. There is another pedunculated mass near the fundus of the uterus measuring about 6.6 cm. Another large mass is seen in the body of the uterus close to the endometrial canal measuring about about 11.8 x 11.3 x 8.4 cm. The endometrial stripe is not visualized. RIGHT OVARY: 3.2 x 2.5 x 2.1 cm. Non-enlarged, normal echogenicity. There is normal arterial inflow and venous outflow present in the right ovary. LEFT OVARY: 4.6 x 2.9 x 2.4 cm. There is a 2.5 cm cyst in the left ovary. There is normal arterial inflow and venous outflow present in the left ovary. FREE FLUID: None. US/Pelvic (Non ) IMPRESSION: 1. Enlarged uterus with multiple masses consistent with uterine fibroids. 2. Large mass in the body of the uterus may be extending or arising from the endometrial canal. 3. Small left ovarian cyst. sound on 07/03/24 showed the following She states that her mom also had a fibroid uterus. She denies family history of uterine cancer. ROS Const ROS Unobtainable: All systems reviewed are unremarkable except as noted in H Resp Resp: Reports system reviewed and no additional complaints, except as documented; Denies cough GI GI: Reports as per HPI Psych Psych: Reports system reviewed and no additional complaints, except as documented Exam Const General: cooperative, healthy appearing, comfortable and no acute distress Resp Effort Inspection: normal respiratory effort Skin General: no rashes or lesions noted Psych Appearance: grossly normal Speech and Movement: speech and movement normal Coding Level of Care Code Off vis,est,level 4 Diagnoses Menorrhagia N92.0 Fibroid uterus D25.9 Anemia D64.9 Assessment and Plan Assessment and Plan (1) Menorrhagia: Status: Acute (2) Fibroid uterus: Status: Acute (3) Anemia: Status: Acute Comment: ON FE Plan After discussing the patient's diagnosis and treatment plan options, patient wishes to proceed with surgical management. I have discussed with the patient the risks, benefits, and alternatives of the procedure which include but are not limited to risks of anesthesia, bleeding, infection, possible damage to bowel, bladder, or surrounding vasculature which could lead to additional surgery to evaluate any complications. Patient agrees to procedure and wishes to proceed. ACOG/uptodate references given for additional (more content not included)...[facility]03-11-2025 Consult note [facility] Medical Records Department [address] [place] [address] Pre-Anesthesia Evaluation 11/11/24 0713 MR#: [id number] Acct: [id number] Name: BONY LIVINGSTON Rep #:[id number] : 1980 43 From: Sandrine Wolf PCP: CLAY Kitcehn Status:ADM IN Y Race: C Location: [place] [address] ASA Classification* ASA Classification ASA Classification: 2 Assessment & Plan Anesthesia* Anesthesia Assessment Anesthesia Assessment: Discussed sedation and/or anesthesia options, risks, benefits, and alternatives with patient/parents/legal guardian/POA. Questions invited. The patient/parents/legal guardian/POA seems to understand and agrees to proceedwith anesthesia plan. Reviewed the physical assessment, medical history, allergy history and patient home medications list prior to surgery/procedure/anesthetic and documented any changes. Performed airway and anesthesia risk assessments. Anesthesia Type Anesthesia Type: General History Source History Obtained from:: Patient and Chart Anesthesia Focused Assessment* Temperature: 99.2 F Pulse Rate: 87 Blood Pressure: 112/72 Respiratory Rate: 18 Pulse Ox: 97 Oxygen Delivery Method: Room Air Airway Assessment Mouth opens: >3 cm Mallampati Score: II Teeth Condition: Intact Neck Range of motion (ROM): Full ROM Focused Labs Anesthesia Preop lab: CBC WBC 9.7 K/mm3 (4.4-11.0) 11/10/24 14:32 11/10/24 RBC 4.20 M/mm3 (4.2-5.4) 11/10/24 14:32 11/10/24 Hgb 12.4 g/dL (12.0-15.0) 11/10/24 14:32 11/10/24 Hct 37.8 % (37-47) 11/10/24 14:32 11/10/24 Plt Count 387 K/mm3 (150-450) 11/10/24 14:32 11/10/24 CHEMISTRY Potassium 3.7 mmol/L (3.5-5.1) 05/14/24 16:40 05/14/24 Sodium 138 mmol/L (136-145) 05/14/24 16:40 05/14/24 Magnesium 2.0 mg/dL (1.5-2.2) 11/10/24 14:32 11/10/24 BUN 7 mg/dL (7-18) 05/14/24 16:40 05/14/24 Creatinine 0.60 mg/dL (0.55-1.02) 05/14/24 16:40 05/14/24 Glucose 91 mg/dL (74-106) 05/14/24 16:40 05/14/24 POC Glucose 100 mg/dL (74-106) 11/11/24 05:57 11/11/24 TSH 1.540 uIU/mL (0.358-3.740) 05/14/24 16:40 05/04 09/26 COAG Urine Test Negative Negative 11/11/24 06:08 11/11/24 Pre-Assessment Diagnosis/Proposed Procedure Planned Operative Procedure(s): TOTAL ABDOMINAL HYSTERECTOMY, BILATERAL SALPINGECTOMY Anesthesia History 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 When Was Last Pacemaker Check QUESTION #4 FULL TEXT: You/Your Family Experience fever (hyperthermia) with Anesthesia Last Oral Intake Last Oral intake: Last Oral Intake NPO since 04:50 11/11/24 06:02 Meds taken in AM with sips of No 11/11/24 06:02 water? Meds patient instructed to take am of surgery PONV PONV - plant machinist: PONV - plant machinist Female Yes 10/28/24 08:20 HX of Motion Sickness No 10/28/24 08:20 HX of N/V After Surgery No 10/28/24 08:20 Non-Smoker Yes 10/28/24 08:20 Duration of Surgery greater Yes 10/28/24 08:20 than 60 minutes Number of Risk Factors 3 10/28/24 08:20 PONV Score Moderate Risk 10/28/24 08:20 Height & Weight Height & Weight: Anesthesia: Height & Weight Height 5 ft 4 in 11/11/24 06:02 Weight: 76.204 kg 11/11/24 06:02 Body Mass Index (BMI) 28.8 11/11/24 06:02 Respiratory Assessment Respiratory Assessment - plant machinist: Respiratory Tract Infection Hx - plant machinist Hx Respiratory Tract Infection No 10/28/24 08:20 STOP Sleep Apnea STOP Sleep Apnea - plant machinist: STOP Sleep Apnea - plant machinist Hx Hypertension No 10/28/24 08:20 Hx Sleep Apnea No 10/28/24 08:20 CPAP BIPAP Do you snore loudly (louder No 10/28/24 08:20 than talking or can be heard Do you often feel tired/ No 10/28/24 08:20 fatigued/ sleepy during daytime? Has anyone observed you stop No 10/28/24 08:20 breathing during sleep? STOP Results Negative 10/28/24 08:20 QUESTION #5 FULL TEXT : Do you snore loudly (louder than talking or can be heard through closeddoors)? Tobacco Use History Tobacco Use History - plant machinist: Tobacco Use History - plant machinist Tobacco Use Smoking Status Never smoker 10/28/24 08:20 Hx Tobacco Use No 10/28/24 08:20 Years Smoking Packs Smoked per Day Smoking Cessation Date was within the last 15 years Hx Smoking Cessation Date Hx Smoking Cessation Counseling Hematologic Medial History Hematologic Hx - plant machinist: Hematologic Medical Hx - patient representative Hx of Blood Transfusion No 10/28/24 08:20 Hx of Transfusion in last 3 No 10/28/24 08:20 Months Date of Last Transfusion (if within last 3 months) Ever experience any problems No 10/28/24 08:20 with transfusion(s)? Specify any problems Hx of Preganancy in last 3 No 10/28/24 08:20 Months Nurse Filling Out Transfusion [email or web address] 10/28/24 08:20 & Questions: Date: 10/28/24 10/28/24 08:20 Time: :10/28/24 08:20 Patient unable to answer at this time (ie. confused, unrespo /Reproduction History /Reproductive History - plant machinist: /Reproductive Hx- plant machinist Hx Now No 10/28/24 08:20 Gestational Age (in weeks): EDC: Hx Hx Para Hx Section SAB No 10/31/24 13:21 Active Medications Active Medications: Current Medications Generic Name Dose Route Start Last Admin Trade Name Freq PRN Reason Stop Dose Admin Acetaminophen 1,000 mg 11/11/24 07:30 11/11/24 06:10 Acetaminophen 500 Mg Tablet PO 11/11/24 07:31 1,000 mg PREOP ONE Administration Celecoxib 400 mg 11/11/24 07:30 11/11/24 06:10 Celecoxib 200 Mg Capsule PO 11/11/24 07:31 400 mg X1 ONE Administration Gabapentin 600 mg 11/11/24 07:30 11/11/24 06:11 Gabapentin 600 Mg Tablet PO 11/11/24 07:31 600 mg PREOP ONE Administration Lactated Ringer's 1,000 mls @ 40 mls/hr 11/11/24 07:30 11/11/24 06:21 IV 40 mls/hr .Q25H ERICA Administration Lactated Ringer's 1,000 mls @ 70 mls/hr 11/11/24 07:30 IV .[id number] ERICA Cefazolin Sodium 2 gm/ N/A 20 mls @ 400 mls/hr 11/11/24 07:30 IV 11/11/24 07:32 PREOP ONE Insulin Human Lispro 0 unit 11/11/24 07:30 Insulin Lispro 100 Unit/Ml Insuln.Pen SC 11/11/24 18:00 Q4H PRN PRN BG >/= 180, SEE PROTOCOL Protocol Ondansetron HCl 4 mg 11/11/24 07:30 Ondansetron 4 Mg/2 Ml Vial IV 11/11/24 07:31 X1 ONE Phenazopyridine HCl 190 mg 11/11/24 07:30 11/11/24 06:10 Phenazopyridine 95 Mg Tablet PO 11/11/24 07:31 190 mg X1 ONE Administration Scopolamine HBr 1 patch 11/11/24 07:30 11/11/24 06:11 Scopolamine 1mg/72hr Patch TD 11/11/24 07:31 1 patch X1 ONE Administration PFSH Medical History Wears glasses Alcohol use Scoliosis Anemia Home Medications ?Medication ?Instructions ?Recorded ?Last Taken ?Type ferrous sulfate 325 mg (65 mg 325 mg PO QDAY DAILY 11/09/24 History iron) tablet (iron) multivitamin 1 tab PO QDAY DAILY 08/18/24 11/09/24 History cholecalciferol (vitamin D3) 25 25 mcg PO DAILY DAILY 10/28/24 11/09/24 History mcg (1,000 unit) capsule milk thistle seed extract 150 1 cap PO DAILY DAILY 10/28/24 History mg-artichoke leaf extract 300 mg capsule (Artichoke Premium Extract) Allergy/AdvReac Type Severity Reaction Status Date / Time No Known Allergies Allergy Verified 11/11/24 05:58 Surgical History History of wisdom tooth extraction History of delivery Social History Smoking Status: Never smoker Review of Systems (Anesthesia) ROS Narrative System reviewed and no additional complaints, except as documented. 11/11/2418 > Date _ Sandrine Wolf Cosigner Signature: Date CC: ~ Signed [facility]02-28-2025 Evaluation note* Diagnosis Onset Date Resolution Status Admit Date Anemia acute October 31, 2024 1:16pm Fibroid uterus resolved October 052024 1:16pm Menorrhagia resolved October 1:16pm Anemia acute November 11 9:37am Fibroid uterus resolved November 9:37am Menorrhagia resolved November 11, 2 025 9:37am Postop check noneactive November 26, 2024 9:53am Status post hysterectomy acute December 22, 2024 3:13pm Physical exam, pre-employment acute February 03, 2025 1 2:31pm [facility] Work Phone: [phone]) 767-614612-16-2024 Evaluation note* Diagnosis Onset Date Resolution Status Admit Date Anemia acute August 18, 2024 2:44pm Fibroid uterus acute August 032023 2:44pm Menorrhagia acute August 2:44pm Acute bronchitis acute August 21, 2024 1:31pm Contact with or suspected exposure to other viral communicable disease acute August 212023 1:31pm Anemia acute October 03, 2024 3:12pm Fibroid uterus acute October 032024 3:12pm Menorrhagia acute October 03, 2024 3:12pm Anemia acute October 31, 2024 1:16pm Fibroid uterus acute October 052024 1:16pm Menorrhagia acute October 1:16pm Anemia acute November 11 9:37am Fibroid uterus acute November 9:37am Menorrhagia acute November 11, 2 9:37am [facility] Work Phone: Reason for referral (narrative)No reason for referral information [facility]: History of Past Illness Problem Noted Date Resolved Date SYNCOPE AND COLLAPSE 02/12/2009 06/06/2016 Chief Complaint and Reason for Visit Chief Complaint Admit Date ENLARGED UTERUS W/ FIBROIDS ABN MENSES ( [place]UCKEYE) August 18, 2024 2:44pm cough August 21, 2024 1:31pm EMB October 03, 2024 3 :12pm BALJINDER BS October 31, 2024 1:16pm Hysterectomy,BALJINDER, Bilateral Salpingectom y November 11, 2024 7:19am Hysterectomy,BALJINDER, Bilateral Salpingectom y November 11, 2024 9:37am Reason for Visit Admit Date Anemia August 18, 2024 2:44pm Fibroid uterus August 18, 2024 2:44pm Menorrhagia August 18, 2024 2:44pm Acute bronchitis August 21, 2024 1:31pm Contact with or suspected ex posure to other viral communicable disease August 21, 2024 1:31pm Anemia October 03, 2024 3 :12pm Fibroid uterus October 03, 2024 3 :12pm Menorrhagia October 03, 2024 3 :12pm Anemia October 31, 2024 1:16pm Fibroid uterus October 31, 2024 1:16pm Menorrhagia October 31, 2024 1:16pm Anemia November 11, 2024 9:3 7am Fibroid uterus November 11, 2024 9:3 7am Menorrhagia November 11, 2024 9:3 7am Chief Complaint Admit Date BALJINDER BS October 31, 2024 1:16pm Hysterectomy,BALJINDER, Bilateral Salpingectom y November 11, 2024 7:19am Hysterectomy,BALJINDER, Bilateral Salpingectom y November 11, 2024 9:37am MENORRHAGIA November 11, 2024 10: 30am 2 wk BALJINDER BS November 26, 2024 9:5 3am 6 wk BALJINDER BS December 22, 2024 3:1 3pm PE NON DOT DRUG & BAT / MENA BRUSH Ju ne 2024 12:31pm Reason for Visit Admit Date Anemia October 31, 2024 1:16pm Fibroid uterus October 31, 2024 1:16pm Menorrhagia October 31, 2024 1:16pm Anemia November 11, 2024 9:3 7am Fibroid uterus November 11, 2024 9:3 7am Menorrhagia November 11, 2024 9:3 7am Postop check November 26, 2024 9:5 3am Status post hysterectomy December 22 3:13pm Physical exam, pre-employment February 03, 2025 12:31pm Advance Directives No Advanced Directives Records Found Advance Directive Response Recorded Date/ Time Living Will No November 11, 2024 11:28am Power of Mechanical Engineering Manager No November 11 11:28am Advance Directive Response Recorded Date/ Time Living Will No November 11, 2024 11:28am Do you have a Healthcare Power of Mechanical Engineering Manager? No November 11, 2024 11:28am Summary Purpose Family History No Family History Records Found Additional Source Comments Source Comments (unrecognize d section and content) In the event this informatio n is protected by the Federal Confidentiality of Alcohol and Drug Abuse Patient Records regulations: The Federal rules restrict any use of the information to criminally investigate or prosecute any alcohol or drug abuse patient.[facility] Care Teams (unrecognized sec tion and content) Team Status: Active Member Role Status Dates CLAY Kitchen Primary Care Provider Active Team Status: Inactive Member Role Status Dates CLAY Kitchen Primary Care Provider Active Start: August 18, 2024 End: August 18, 2024 CLAY Kitchen Referring Provider Active St art: August 18, 2024 End: August 18, 2024 Dr. Monica Davila DO Attending Provider Activ e Start: August 18, 2024 End: August 18, 2024 Team Status: Inactive Member Role Status Dates CLAY Kitchen Primary Care Provider Active Start: August 21, 2024 End: August 21, 2024 CLAY Kitchen Referring Provider Active St art: August 21, 2024 End: August 21, 2024 Jabier MANNING PA Attending Provider Active Sta rt: August 21, 2024 End: August 21, 2024 Team Status: Inactive Member Role Status Dates Paola Hope , COMPRESSOR OPERATOR ADJUSTER-C Primary Care Provider Active Start: October 03, 2024 End: October 03, 2024 Paola Hope , COMPRESSOR OPERATOR ADJUSTER-C Referring Provider Active St art: October 03, 2024 End: October 03, 2024 Dr. Monica Davila , DO Attending Provider Activ e Start: October 03, 2024 End: October 03, 2024 Team Status: Inactive Member Role Status Dates Paola Hope , COMPRESSOR OPERATOR ADJUSTER-C Primary Care Provider Active Start: October 03, 2024 End: October 03, 2024 Dr. Monica Davila , Attending Provider Activ e Start: October 03, 2024 End: October 03, 2024 Dr. Monica Davila , Referring Provider Activ e Start: October 03, 2024 End: October 03, 2024 Team Status: Inactive Member Role Status Dates Paola Hope , COMPRESSOR OPERATOR ADJUSTER-C Primary Care Provider Active Start: October 31, 2024 End: October 31, 2024 Paola Hope COMPRESSOR OPERATOR ADJUSTER-C Referring Provider Active St art: October 31, 2024 End: October 31, 2024 Dr. Monica Davila DO Attending Provider Activ e Start: October 31, 2024 End: October 31, 2024 Team Status: Active Member Role Status Dates Paola Hope , COMPRESSOR OPERATOR ADJUSTER-C Primary Care Provider Active Start: November 10, 2024 Dr. Monica Davila DO Attending Provider Activ e Start: November 10, 2024 Team Status: Active Member Role Status Dates Paola Hope , COMPRESSOR OPERATOR ADJUSTER-C Primary Care Provider Active Start: November 11, 2024 Dr. Monica Davila DO Admit Provider Active Start: November 11, 2024 Dr. Monica Davila DO Attending Provider Activ e Start: November 11, 2024 Dr. Monica Davila DO Referring Provider Activ e Start: November 11, 2024 Dr. Monica Davila DO Other Provider Active Start: November 11, 2024 Team Status: Inactive Member Role Status Dates Paola Hope , COMPRESSOR OPERATOR ADJUSTER-C Primary Care Provider Active Start: November 11, 2024 End: November 12, 2024 Dr. Monica Davila , Admit Provider Active Start: November 11, 2024 End: November 12, 2024 Dr. Monica Davila DO Attending Provider Activ e Start: November 11, 2024 End: November 12, 2024 Dr. Monica Davila DO Referring Provider Activ e Start: November 11, 2024 End: November 12, 2024 Team Status: Inactive Member Role Status Dates Paolaannalise Hope , COMPRESSOR OPERATOR ADJUSTER-C Primary Care Provider Active Start: November 10, 2024 End: November 10, 2024 Dr. Monica Davila DO Attending Provider Activ e Start: November 10, 2024 End: November 10, 2024 Team Status: Active Member Role Status Dates Paola Hope , COMPRESSOR OPERATOR ADJUSTER-C Primary Care Provider Active Start: November 11, 2024 Dr. Dexter Redding MD Attending Provider Active Start: November 11, 2024 Dr. Dexter Redding MD Referring Provider Active Start: November 11, 2024 Team Status: Inactive Member Role Status Dates Paola Hope , COMPRESSOR OPERATOR ADJUSTER-C Primary Care Provider Active Start: November 26, 2024 End: November 26, 2024 Paola Hope , COMPRESSOR OPERATOR ADJUSTER-C Referring Provider Active St art: November 26, 2024 End: November 26, 2024 Marta Gonzalze NP, COMPRESSOR OPERATOR ADJUSTER-C Attending Provider Active Start: November 26, 2024 End: November 26, 2024 Team Status: Inactive Member Role Status Dates Paolaannalise Hope , COMPRESSOR OPERATOR ADJUSTER-C Primary Care Provider Active Start: December 22, 2024 End: December 22, 2024 Paola Hope , COMPRESSOR OPERATOR ADJUSTER-C Referring Provider Active St art: December 22, 2024 End: December 22, 2024 Dr. Monica Davila DO Attending Provider Activ e Start: December 22, 2024 End: December 22, 2024 Team Status: Inactive Member Role Status Dates Paolaannalise Hope , COMPRESSOR OPERATOR ADJUSTER-C Primary Care Provider Active Start: February 03, 2025 End: February 03, 2025 Paola Hope , COMPRESSOR OPERATOR ADJUSTER-C Referring Provider Active St art: February 03, 2025 End: February 03, 2025 Kvng MANNING, PA Attending Provider Active Start: February 03, 2025 End: February 03, 2025 INFORMATION SOURCE (unrecogn ized section and content) DATE CREATED AUTHOR 05/08/2025 [facility] FOR RECORDS PERTAINING TO PATIENTS WHO ARE OR HAVE BEEN ENROLLED IN A CHEMICAL DEPENDENCY/SUBSTANCEABUSE PROGRAM, SOME INFORMATION MAY BE OMITTED. This clinical summary was aggregated from multiple sources. Caution should be exercised in using it in the provision of clinical care. This summary normalizes information from multiple sources, and as a consequence, information in this document may materially change the coding, format and clinical context of patient data. In addition, data may be omitted in some cases. CLINICAL DECISIONS SHOULD BE BASED ON THE PRIMARY CLINICAL RECORDS. [facility] [facility]. provides no warranty or guarantee of the accuracy or completeness of information in this document.
== END | disposition home or self-care (01) ==
PROVIDERS: PCP Nurse Practitioner Family; Referring Provider Nurse Practitioner Family; Visit Provider Nurse Practitioner Family
DX: Z12.31 Encounter for screening mammogram for malignant neoplasm of breast (principal)
CPT/HCPCS: 77063; 77067

== ENCOUNTER → 2025-07-15 | Outpatient (CLI) | payer BC, SELFPAY ==
[2025-07-15 16:50] LABS: Ferritin 326 ng/mL (22-378); Iron 47 ug/dL (50-170); Vitamin D,25 Hydroxy 45.4 ng/mL (30-100)
[2025-07-15 17:52] LABS: Hematocrit 39.9 % (37-47); Hemoglobin 13.1 g/dL (12.0-15.0); Immature Granulocytes Count 0.030 X10^3/uL (0.0-0.0); Mean Corp Hgb Conc 32.8 g/dL (32-36); Mean Corpuscular Volume 88.7 fL (81-99); Mean Platelet Vol. 10.7 fl (6.2-12.0); NRBC Flagged by Analyzer 0 % (0-5); Platelet Count 415 K/mm3 (150-450); RBC Distribution Width CV 14.0 % (11.6-14.6); RBC Distribution Width SD 45.5 fl (35.1-43.9); Red Blood Count 4.50 M/mm3 (4.2-5.4); White Blood Count 10.3 K/mm3 (4.4-11.0)
== END | disposition home or self-care (01) ==
LOC: MTLAB 12:33
PROVIDERS: PCP Family Medicine; Referring Provider Nurse Practitioner Family; Visit Provider Nurse Practitioner Family
DX: Z00.01 Encounter for general adult medical examination with abnormal findings (principal); D50.9 Iron deficiency anemia, unspecified; E55.9 Vitamin D deficiency, unspecified
CPT/HCPCS: 36415; 82306; 82728; 83540; 85025